=== PATIENT | female | born 1940 | race Caucasian/White ===

== ENCOUNTER 2016-12-19 09:47 | Inpatient (IN) | payer OTHER ==
--- NOTE | 2016-12-19 09:59 | PDOC ---
History of Present Illness - General History Source: Patient Exam Limitations: No Limitations - History of Present Illness Initial Comments: 12/19/16 11:01 The patient is a 76 year old female with a significant past medical history of emphysema who presents to the ED from [facility] with difficulty breathing. Patient notes dyspnea on exertion and difficulty ambulating. She states that she has been in bed all week because she cannot even walk from bed to bathroom. Patient reports that she had a CXR done last week and was found to have fluid in her lungs and was prompted to present to the ED on 12/16. Patient was placed on lasix due to her bilateral LE edema. She notes that her edema has gotten better after the Lasix. She denies fever, chills, nausea, vomiting, constipation, headache. She reports that the hitcher placed her on Eliquis SH: former smoker quit 30 years ago Caption Writer - Dr. Gonzalez Senior Investigator - Dr. Ramos <Luann Cano - Last Filed: 12/19/16 13:15> <Sami Partida - Last Filed: 12/19/16 13:22> - General Chief Complaint: Shortness of Breath Stated Complaint: DIFFICULTY BREATHING Time Seen by Provider: 12/19/16 09:59 Past History <Luann Cano - Last Filed: 12/19/16 13:15> <Sami Partida - Last Filed: 12/19/16 13:22> - Past Medical History Allergies/Adverse Reactions: Allergies Allergy/AdvReac Type Severity Reaction Status Date / Time No Known Allergies Allergy Verified 12/19/16 10:04 Home Medications: Ambulatory Orders Acetaminophen [Tylenol -] 1,000 mg PO Q8H 12/19/16 Albuterol Sulfate [Proair Respiclick] 90 mcg IH QID 12/19/16 Alprazolam [Alprazolam ER] 0.25 mg PO TID 12/19/16 Apixaban [Eliquis] 5 mg PO BID 12/19/16 Calcium Carbonate [Tums Ultra] 500 mg PO TID 12/19/16 Diltiazem [Cardizem -] 60 mg PO BID 12/19/16 Docusate Sodium [Colace -] 100 mg PO HS 12/19/16 Furosemide [Lasix] 20 mg PO DAILY 12/19/16 Guaifenesin [Mucinex] 600 mg PO BID 12/19/16 Magnesium Hydrox 2400MG/30Ml [Milk of Magnesia -] 30 ml PO DAILY 12/19/16 Metolazone [Zaroxolyn -] 2.5 mg PO DAILY 12/19/16 Prednisone 10 mg PO DAILY 12/19/16 Ranitidine HCl 75 mg PO DAILY 12/19/16 Salmeterol/Fluticasone [Advair 500Mcg/50Mcg -] 1 inh IH BID 12/19/16 Tiotropium [place] [Spiriva] 18 mcg IH DAILY 12/19/16 Review of Systems - Review of Systems Able to Perform ROS?: Yes Comments:: 12/19/16 11:01 GENERAL/CONSTITUTIONAL: No fever or chills. No weakness. HEAD, EYES, EARS, NOSE AND THROAT: No change in vision. No ear pain or discharge. No sore throat. CARDIOVASCULAR: No chest pain. RESPIRATORY: +difficulty breathing. No cough, wheezing, or hemoptysis. GASTROINTESTINAL: No nausea, vomiting, diarrhea or constipation. GENITOURINARY: No dysuria, frequency, or change in urination. MUSCULOSKELETAL: No joint or muscle swelling or pain. No neck or back pain. SKIN: No rash NEUROLOGIC: No headache, vertigo, loss of consciousness, or change in strength/ sensation. ENDOCRINE: No increased thirst. No abnormal weight change. HEMATOLOGIC/LYMPHATIC: No anemia, easy bleeding, or history of blood clots. ALLERGIC/IMMUNOLOGIC: No hives or skin allergy. <Luann Cano - Last Filed: 12/19/16 13:15> *Physical Exam - Vital Signs Last Vital Signs Temp Pulse Resp BP Pulse Ox 97.8 F 83 24 111/56 100 12/19/16 10:00 12/19/16 10:35 12/19/16 10:35 12/19/16 10:35 12/19/16 10:35 - Physical Exam Comments: 12/19/16 11:03 GENERAL: Awake, alert, and fully oriented, in no acute distress HEAD: No signs of trauma EYES: PERRLA, EOMI, sclera anicteric, conjunctiva clear ENT: Auricles normal inspection, hearing grossly normal, nares patent, oropharynx clear without exudates. Moist mucosa NECK: Normal ROM, supple, no lymphadenopathy, JVD, or masses LUNGS: +Rales bilaterally. Breath sounds equal, clear to auscultation bilaterally. No wheezes, and no crackles HEART: Regular rate and rhythm, normal S1 and S2, no murmurs, rubs or gallops ABDOMEN: Soft, nontender, normoactive bowel sounds. No guarding, no rebound. No masses EXTREMITIES: Normal range of motion, no edema. No clubbing or cyanosis. No cords, erythema, or tenderness NEUROLOGICAL: Cranial nerves II through XII grossly intact. Normal speech. SKIN: Warm, Dry, normal turgor, no rashes or lesions noted. <Luann Cano - Last Filed: 12/19/16 13:15> ED Treatment Course - LABORATORY CBC & Chemistry Diagram: 12/19/16 10:24 12/19/16 10:24 - ADDITIONAL ORDERS Additional order review: Laboratory Results 12/19/16 10:24 Sodium 130 L Chloride 73 L BUN 14 Creatinine 0.6 Creat Clearance w eGFR > 60 Random Glucose 122 H Calcium 8.7 Total Bilirubin 0.3 AST 21 ALT 21 Alkaline Phosphatase 103 Creatine Kinase 54 Troponin I 0.02 B-Natriuretic Peptide 189.67 Total Protein 6.4 Albumin 3.1 L 12/19/16 10:24 RBC 4.99 MCV 82.5 MCHC 31.9 L RDW 12.7 MPV 7.9 Neutrophils % 68.1 Lymphocytes % 17.2 Monocytes % 14.2 H Eosinophils % 0.3 Basophils % 0.2 - Medications Given in the ED: ED Medications Discontinued Medications Generic Name Dose Route Start Last Admin Trade Name Freq PRN Reason Stop Dose Admin Furosemide 40 mg 12/19/16 10:22 12/19/16 10:40 Lasix Injection - IVPUSH 12/19/16 10:23 40 mg ONCE ONE Administration <Luann Cano - Last Filed: 12/19/16 13:15> - LABORATORY CBC & Chemistry Diagram: 12/19/16 10:24 12/19/16 10:24 <Sami Partida - Last Filed: 12/19/16 13:22> Medical Decision Making - Medical Decision Making 12/19/16 11:03 76 year old female with a significant past medical history of emphysema who presents to the ED from [facility] with difficulty breathing. Will order UA, EKG , and blood work. Will reassess when results are back. 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 Gonzalez, who states that the patient has CHF and needs to be admitted. 12/19/16 11:53 A call was placed to Dr. Huerta. Awaiting a call back. 12/19/16 12:[address] Huerta. She stated that she will not accept the patient and requested the hospitalist to take the admission. <Luann Cano - Last Filed: 12/19/16 13:15> *DC/Admit/Observation/Transfer - Attestations Scribe Attestion: 12/19/16 11:05 Documentation prepared by ZAYDA Brownlee, acting as medical insurance claims specialist for Sami Partida MD/. <Luann Cano - Last Filed: 12/19/16 13:15> - Discharge Dispostion Admit: Yes - Attestations Physician Attestion: 12/19/16 09:59 I, Dr. Sami Partida, attest that this document has been prepared under my direction and personally reviewed by me in its entirety. I further attest, that it accurately reflects all work, treatment, procedures and medical decision -making performed by me. <Sami Partida - Last Filed: 12/19/16 13:22> Diagnosis at time of Disposition: Congestive heart failure Qualifiers: Congestive heart failure type: combined Congestive heart failure chronicity: acute Qualified Code(s): I50.41 - Acute combined systolic (congestive) and diastolic (congestive) heart failure Dyspnea Qualifiers: Dyspnea type: dyspnea on exertion Qualified Code(s): R06.09 - Other forms of dyspnea - Discharge Dispostion Condition at time of disposition: Improved - Referrals Referrals: STAFF,NOT ON [Primary Care Provider] -
[2016-12-19] MEDS ORDERED: FUROSEMIDE 40 MG/4 ML INJECTABLE VIAL IVPUSH ONE (10:22)
[2016-12-19] MEDS ORDERED: FUROSEMIDE 40 MG/4 ML INJECTABLE VIAL ONE (10:25)
[2016-12-19 10:30] LABS: BASOPHIL 0.2 % (0-2.0); EOSINOPHIL 0.3 % (0-4.5); MCH 26.3 pg (25.7-33.7); MCHC 31.9 g/dl (32.0-36.0); MEAN CELL VOLUME 82.5 fl (80-96); MEAN PLT VOLUME 7.9 fl (7.5-11.1); NEUTROPHILS 68.1 % (42.8-82.8); PLATELET COUNT 218 K/MM3 (134-434); RDW 12.7 % (11.6-15.6); WHITE BLOOD COUNT 10.7 K/mm3 (4.0-10.0)
[2016-12-19 10:49] LABS: ALBUMIN 3.1 g/dl (3.4-5.0); BILIRUBIN,TOTAL 0.3 mg/dL (0.2-1.0); CALCIUM 8.7 mg/dL (8.5-10.1); CREATININE 0.6 mg/dL (0.55-1.02); GLUCOSE,RANDOM 122 mg/dL (74-106); SGOT/AST 21 U/L (15-37); SGPT/ALT 21 U/L (12-78); TOT PROT 6.4 g/dl (6.4-8.2)
[2016-12-19 10:50] LABS: INR 1.55 (0.82-1.09); PROTHROMBIN TIME (PATIENT) 17.2 SEC (9.98-11.88)
[2016-12-19 10:53] LABS: ALK PHOS 103 U/L (45-117); TROPONIN I 0.02 ng/ml (0.00-0.05)
[2016-12-19] MEDS ORDERED: POTASSIUM CHLORIDE TABS 20 MEQ TABLET.ER (FP) PO ONE ×2 (11:07→11:12)
[2016-12-19 11:09] LABS: ANION GAP 6 (8-16); CO2 51 mmol/L (21-32)
[2016-12-19 11:11] LABS: URINE APPEARANCE CLEAR; URINE BILIRUBIN NEGATIVE (NEGATIVE); URINE BLOOD NEGATIVE (NEGATIVE); URINE COLOR LTYELLOW; URINE GLUCOSE (UA) NEGATIVE (NEGATIVE); URINE KETONE NEGATIVE (NEGATIVE); URINE LEUK ESTERASE NEGATIVE (NEGATIVE); URINE NITRITE NEGATIVE (NEGATIVE); URINE PROTEIN NEGATIVE (NEGATIVE); URINE UROBILINOGEN NEGATIVE E.U./dl (0.2-1.0)
--- NOTE | 2016-12-19 11:47 | CON.CARD ---
Consult Consult Specialty:: Cardiology Referred by:: ER (Patient from [facility]) Reason for Consultation:: Cardiac evaluation - History of Present Illness Chief Complaint: Shortness of breath History of Present Illness: Patient is a 76 year old female with underlying history of COPD on O2 and paroxysmal atrial fibrillation ([id number] score of 3) now on Eliquis presents with increased shortness of breath. She denies chest pain or palpitations. ECG demonstrates sinus rhythm. Denies paroxysmal nocturnal dyspnea or orthopnea. Denies fever or chills. Denies headache or lightheadedness. Patient was given IV diuretics and ann catheter was inserted. Cardiology consultation was called for further evaluation. Transthoracic echocardiography from office recently revealed normal left ventricular systolic function and mild tricuspid valve regurgitation. - History Source History Provided By: Patient, Family Member, Medical Record Limitations to Obtaining History: No Limitations - Past Medical History Cardio/Vascular: Yes: AFIB Pulmonary: Yes: COPD - Past Surgical History Past Surgical History: Yes: Appendectomy, Cholecystectomy - Alcohol/Substance Use Hx Alcohol Use: Yes (social) - Smoking History Smoking history: Former smoker Have you smoked in the past 12 months: No If you are a former smoker, when did you quit?: 1977 Home Medications - Allergies Allergies/Adverse Reactions: Allergies Allergy/AdvReac Type Severity Reaction Status Date / Time No Known Allergies Allergy Verified 12/19/16 10:04 - Home Medications Home Medications: Ambulatory Orders Acetaminophen [Tylenol -] 1,000 mg PO Q8H PRN 12/19/16 Albuterol Sulfate [Proair Respiclick] 90 mcg IH QID 12/19/16 Alprazolam [Alprazolam ER] 0.25 mg PO TID 12/19/16 Apixaban [Eliquis] 5 mg PO BID 12/19/16 Calcium Carbonate [Tums Ultra] 500 mg PO TID 12/19/16 Diltiazem [Cardizem -] 60 mg PO BID 12/19/16 Docusate Sodium [Colace -] 100 mg PO HS 12/19/16 Furosemide [Lasix] 20 mg PO DAILY 12/19/16 Guaifenesin [Mucinex] 600 mg PO BID 12/19/16 Magnesium Hydrox 2400MG/30Ml [Milk of Magnesia -] 30 ml PO DAILY 12/19/16 Metolazone [Zaroxolyn -] 2.5 mg PO DAILY 12/19/16 Prednisone 10 mg PO DAILY 12/19/16 Ranitidine HCl 75 mg PO DAILY 12/19/16 Salmeterol/Fluticasone [Advair 500Mcg/50Mcg -] 1 inh IH BID 12/19/16 Tiotropium [place] [Spiriva] 18 mcg IH DAILY 12/19/16 Family Disease History - Family Disease History Family Disease History: CA: Mother (Breast), Daughter (Breast) Review of Systems - Review of Systems Constitutional: denies: Chills, Fever Cardiovascular: reports: Shortness of Breath. denies: Chest Pain, Palpitations Respiratory: reports: SOB. denies: Cough, Hemoptysis, Orthopnea, PND Gastrointestinal: denies: Abdominal Pain, Constipation, Diarrhea, Melena, Nausea , Rectal Bleeding, Vomiting Neurological: denies: Dizziness, Headache, Numbness, Seizure, Syncope Vital Signs: Vital Signs Temperature 97.8 F 12/19/16 10:00 Pulse Rate 85 12/19/16 11:24 Respiratory Rate 22 12/19/16 11:24 Blood Pressure 113/77 12/19/16 11:24 O2 Sat by Pulse Oximetry (%) 99 12/19/16 11:24 Neck: Yes: Supple Respiratory: Yes: Diminished Gastrointestinal: Yes: Normal Bowel Sounds, Soft. No: Tenderness Cardiovascular: Yes: Regular Rate and Rhythm JVD: No Carotid Bruit: No PMI: Non-Displaced Heart Sounds: Yes: S1, S2 Edema: Yes Edema: LLE: Trace, RLE: Trace - Other Data Labs, Other Data: CBC, BMP 12/19/16 10:24 12/19/16 10:24 INR, PTT INR 1.55 (0.82-1.09) H 12/19/16 10:24 Troponin, BNP 12/19/16 10:24 Troponin I 0.02 B-Natriuretic Peptide 189.67 Laboratory Results - last 24 hr 12/19/16 12/19/16 12/19/16 10:24 10:24 10:24 WBC 10.7 H RBC 4.99 Hgb 13.1 Hct 41.2 MCV 82.5 MCHC 31.9 L RDW 12.7 Plt Count 218 MPV 7.9 Neutrophils % 68.1 Lymphocytes % 17.2 Monocytes % 14.2 H Eosinophils % 0.3 Basophils % 0.2 INR 1.55 H Sodium 130 L Potassium 2.5 L* Chloride 73 L Carbon Dioxide 51 H Anion Gap 6 L BUN 14 Creatinine 0.6 Creat Clearance w eGFR > 60 Random Glucose 122 H Calcium 8.7 Total Bilirubin 0.3 AST 21 ALT 21 Alkaline Phosphatase 103 Creatine Kinase 54 Troponin I 0.02 B-Natriuretic Peptide 189.67 Total Protein 6.4 Albumin 3.1 L Urine Color Urine Appearance Urine pH Ur Specific [place] Urine Protein Urine Glucose (UA) Urine Ketones Urine Blood Urine Nitrite Urine Bilirubin Urine Urobilinogen Ur Leukocyte Esterase 12/19/16 12/19/16 12/19/16 10:46 18:18 18:18 WBC RBC Hgb Hct MCV MCHC RDW Plt Count MPV Neutrophils % Lymphocytes % Monocytes % Eosinophils % Basophils % INR Sodium 126 L Potassium 3.3 L D Chloride 69 L Carbon Dioxide > 45 H Anion Gap 12 BUN 15 Creatinine 0.5 L Creat Clearance w eGFR Random Glucose 188 H D Calcium 8.6 Total Bilirubin AST ALT Alkaline Phosphatase Creatine Kinase Troponin I < 0.02 B-Natriuretic Peptide Total Protein Albumin Urine Color Ltyellow Urine Appearance Clear Urine pH 7.0 Ur Specific [place] 1.011 Urine Protein Negative Urine Glucose (UA) Negative Urine Ketones Negative Urine Blood Negative Urine Nitrite Negative Urine Bilirubin Negative Urine Urobilinogen Negative Ur Leukocyte Esterase Negative Sinus rhythm PVC, APC Echo: Report Reviewed Imaging - Results Chest X-ray: Report Reviewed (Granulomatous changes, atelectasis) EKG: Report Reviewed Problem List - Problems (1) Dyspnea Code(s): R06.00 - DYSPNEA, UNSPECIFIED Qualifiers: Dyspnea type: dyspnea on exertion Qualified Code(s): R06.09 - Other forms of dyspnea (2) COPD (chronic obstructive pulmonary disease) Code(s): J44.9 - CHRONIC OBSTRUCTIVE PULMONARY DISEASE, UNSPECIFIED Qualifiers : COPD type: unspecified COPD Qualified Code(s): J44.9 - Chronic obstructive pulmonary disease, unspecified (3) Acute on chronic diastolic congestive heart failure Code(s): I50.33 - ACUTE ON CHRONIC DIASTOLIC (CONGESTIVE) HEART FAILURE (4) Atrial fibrillation Code(s): I48.91 - UNSPECIFIED ATRIAL FIBRILLATION Qualifiers: Atrial fibrillation type: paroxysmal Qualified Code(s): I48.0 - Paroxysmal atrial fibrillation Assessment/Plan 1. Clinical presentation suggests acute on chronic LV diastolic failure 2. Paroxysmal atrial fibrillation now in sinus rhythm 3. COPD PLAN: 1. IV diuretics and monitor renal function and electrolytes. Patient was also started on Zaroxolyn, but use with caution. K supplement. Monitor I/Os 2. Continue Cardizem PO 3. Continue Eliquis 4. Bronchodilator, steroids and O2. Further plans are to follow Juan R Gonzalez MD
--- NOTE | 2016-12-19 15:38 | HP ---
CHIEF COMPLAINT: dyspnea PCP: From [facility] Herbarium Worker: Dr. Gonzalez Test Boring Crew Chief: Dr. Ramos HISTORY OF PRESENT ILLNESS: 76 yr old woman with hx of HTN, diastolic CHF, emphysema (oxygen dependent 3lpm) , BIBEMS from [facility] for worsening shortness of breath and weakness. For past two weeks she has noticed worsening exertional dyspnea. She was on 2lpm but required to go to 3lpm for the past few days due to sob, also for past few days she has not been able to get out of bed even for the bathroom due to difficulty breathing which started to occur at rest. She also c/o b/l edema in her feet and ankles which has improved since starting lasix. She saw Dr. Gonzalez recently and was diagnosed with CHF and started on lasix daily. She took a chest xray as outpatient was told she had pleural effusion last week. Resident of [facility] past 15 months. ER course was notable for: (1) Lasix IVPB 40mg (2) potassium chl 40meq Recent Travel: PAST MEDICAL HISTORY: Emphysema CHF, afib anxiety HTN GERD Social History: Smoking: quit 1977 Alcohol: denies Drugs: denies Family History: [place] Allergies No Known Allergies Allergy (Verified 12/19/16 10:04) HOME MEDICATIONS: Home Medications Medication Instructions Recorded Acetaminophen [Tylenol -] 1,000 mg PO Q8H 12/19/16 Albuterol Sulfate [Proair 90 mcg IH QID 12/19/16 Respiclick] Alprazolam [Alprazolam ER] 0.25 mg PO TID 12/19/16 Apixaban [Eliquis] 5 mg PO BID 12/19/16 Calcium Carbonate [Tums Ultra] 500 mg PO TID 12/19/16 Diltiazem [Cardizem -] 60 mg PO BID 12/19/16 Docusate Sodium [Colace -] 100 mg PO HS 12/19/16 Furosemide [Lasix] 20 mg PO DAILY 12/19/16 Guaifenesin [Mucinex] 600 mg PO BID 12/19/16 Magnesium Hydrox 2400MG/30Ml [Milk 30 ml PO DAILY 12/19/16 of Magnesia -] Metolazone [Zaroxolyn -] 2.5 mg PO DAILY 12/19/16 Prednisone 10 mg PO DAILY 02/19/17 Ranitidine HCl 75 mg PO DAILY 12/19/16 Salmeterol/Fluticasone [Advair 1 inh IH BID 12/19/16 500Mcg/50Mcg -] Tiotropium [place] [Spiriva] 18 mcg IH DAILY 12/19/16 REVIEW OF SYSTEMS CONSTITUTIONAL: Present: generalized weakness,weight change(has been loosing weight for past year) Absent: fever, chills, diaphoresis, malaise, loss of appetite, HEENT: Absent: rhinorrhea, nasal congestion, throat pain, throat swelling, difficulty swallowing, mouth swelling, ear pain, eye pain, visual changes CARDIOVASCULAR: Present: irregular heart rate, peripheral edema Absent: chest pain, syncope, palpitations,lightheadedness, RESPIRATORY: Present: shortness of breath, dyspnea with exertion, Absent: cough, orthopnea, wheezing, stridor, hemoptysis GASTROINTESTINAL: Absent: abdominal pain, abdominal distension, nausea, vomiting, diarrhea, constipation, melena, hematochezia GENITOURINARY: Absent: dysuria, frequency, urgency, hesitancy, hematuria, flank pain, genital pain MUSCULOSKELETAL: Absent: myalgia, arthralgia, joint swelling, back pain, neck pain SKIN: Absent: rash, itching, pallor HEMATOLOGIC/IMMUNOLOGIC: Absent: easy bleeding, easy bruising, lymphadenopathy, frequent infections ENDOCRINE: Absent: unexplained weight gain, unexplained weight loss, heat intolerance, cold intolerance NEUROLOGIC: Absent: headache, focal weakness or paresthesias, dizziness, unsteady gait, seizure, mental status changes, bladder or bowel incontinence PSYCHIATRIC: Present: anxiety, Absent:depression, suicidal or homicidal ideation, hallucinations. PHYSICAL EXAMINATION GENERAL: thin, elderly, Awake, alert, and fully oriented, in no acute distress. HEAD: Normal with no signs of trauma. EYES: Pupils equal, round and reactive to light, extraocular movements intact, sclera anicteric, conjunctiva clear. No lid lag. EARS, NOSE, THROAT: Ears normal, nares patent, oropharynx clear with thrush on upper palate. Moist mucous membranes. NECK: Normal range of motion, supple without lymphadenopathy, or masses. +JVD LUNGS: Breath sounds equal, clear to auscultation bilaterally. scattered wheezing R>L No accessory muscle use. HEART: irregular rate and rhythm, normal S1 and S2 without murmur, rub or gallop. ABDOMEN: Soft, nontender, not distended, normoactive bowel sounds, no guarding, no rebound, no masses. MUSCULOSKELETAL: within normal range of motion at all joints. No bony deformities or tenderness. No CVA tenderness. UPPER EXTREMITIES: 2+ pulses, warm, well-perfused. No cyanosis. No clubbing. Cap refill <2 seconds. No peripheral edema. 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 LOWER EXTREMITIES: 2+ pulses, warm, well-perfused. No calf tenderness. 1+ pitting edema b/l ankles. NEUROLOGICAL: Normal speech. PSYCHIATRIC: Cooperative. Good eye contact. Appropriate mood and affect. SKIN: Warm, dry, normal turgor, stage II decub ulcer Ann in place - clear yellow urine. Active Medications Acetaminophen (Tylenol -) 650 mg PO Q6H PRN Aclidinium [place] (Tudorza -) 1 puff IH BID [facility]IS Albuterol Sulfate (Ventolin Hfa Inhaler -) 2 puff IH Q4H PRN Albuterol/Ipratropium (Duoneb -) 1 amp NEB Q6H PRN PRN Reason: SHORTNESS OF BREATH Alprazolam (Xanax -) 0.25 mg PO TID PRN PRN Reason: ANXIETY Apixaban (Eliquis -) 5 mg PO BID [facility] Budesonide/Formoterol Fumarate (Symbicort 160/4.5mcg -) 2 puff IH BID [facility] Diltiazem HCl (Cardizem -) 60 mg PO BID [facility] Docusate Sodium (Colace -) 100 mg PO HS [facility] Furosemide (Lasix Injection -) 20 mg IVPB BID@0600,1400 [facility] Guaifenesin (Mucinex -) 600 mg PO BID [facility] Potassium Chloride (Potassium Chloride 10 Meq Premix Ivpb -) 100 mls @ 100 mls/ hr IVPB Q60M [facility] Stop: 12/19/16 21:29 Last Admin: 12/19/16 19:30 Dose: 100 mls/hr Magnesium Hydroxide (Milk Of Magnesia -) 30 ml PO DAILY [facility] Methylprednisolone Sodium Succinate (Solu-Medrol -) 40 mg IVPB Q8H-IV [facility] Metolazone (Zaroxolyn -) 2.5 mg PO DAILY@0530 [facility] Potassium Chloride (K-Dur -) 20 meq PO BID [facility] Stop: 12/23/16 09:59 Ranitidine HCl (Zantac -) 75 mg PO DAILY [facility] ASSESSMENT/PLAN: 76 yr old woman with emphysema (oxygen dependent), diastolic CHF, HTN presents with worsening dyspnea found to be hypokalemic admitted for acute diastolic CHF. #SOb secondary to acute CHF exacerbation - lasix 20mg IVPB BID - I&O, daily weights - ann in place - monitor electrolytes #Hypokalemia, likely from diuretic use - replete po 40meq in Ed, Ivpb [id number] #Arrhythmia - cardizem 60mg po BID - eliquis 5mg po bid #Thrush, likely from inhalers - nystatin swich&swallow q6hr #Emphysema - oxygen dependent - continous oxygen 3lpm, maintain oxygen sat >90% - solu-medrol 40mg IVPb q8hr --start 12/20 - symbicort, mucinex,duonebs,ventolin, tudorza #HTN - metalazone #GERD - ranitidine, milk of magnesia #Anxiety - xanax 0.25 TID #DVT - on eliquis #Diet: low sodium Code: DNR/DNI Visit type - Emergency Visit Emergency Visit: Yes ED Registration Date: 12/19/16 Care time: The patient presented to the Emergency Department on the above date and was hospitalized for further evaluation of their emergent condition. - New Patient This patient is new to me today: Yes Date on this admission: 12/19/16 - Critical Care Critical Care patient: No
[2016-12-19] MEDS ORDERED: ACETAMINOPHEN 325 MG TABLET (FP) PO PRN (16:45)
[2016-12-19] MEDS ORDERED: ALBUTEROL SO4 6.7 GM HFA INHALER IH PRN (18:00)
[2016-12-19 18:03] VITALS: BMI 15.7
--- NOTE | 2016-12-19 18:25 | PN ---
Teaching Attending Note Name of Resident: Cindy Jeter ATTENDING PHYSICIAN STATEMENT I saw and evaluated the patient. I reviewed the resident's note and discussed the case with the resident. I agree with the resident's findings and plan as documented. SUBJECTIVE: Patient is c/o being shortness of breath, no nausea or vomiting, no fever or chills. No headache.No fever or chills. OBJECTIVE: Vital Signs Temperature 97.8 F 12/19/16 10:00 Pulse Rate 62 12/19/16 17:23 Respiratory Rate 22 12/19/16 17:23 Blood Pressure 119/52 12/19/16 17:23 O2 Sat by Pulse Oximetry (%) 97 12/19/16 17:23 GENERAL: Awake, alert, and fully oriented, in no acute distress. HEAD: Normal with no signs of trauma. EYES: Pupils equal, round and reactive to light, extraocular movements intact, sclera anicteric, conjunctiva clear. EARS, NOSE, THROAT: Ears normal, oropharynx clear without exudates. Moist mucous membranes. NECK: Normal range of motion, supple without lymphadenopathy, JVD, or masses. LUNGS: decreased Breath sounds BL , Decreased air entry BL, no crackles. No accessory muscle use. HEART: Regular rate and rhythm, S1 and S2 positive, AMRIK 2/6 , no rub or gallop. ABDOMEN: Soft, nontender, not distended, normoactive bowel sounds, no guarding, no rebound, no masses. MUSCULOSKELETAL: Normal range of motion at all joints. No bony deformities or tenderness. No CVA tenderness. EXTREMITIES: 2+ pulses, warm, well-perfused. No calf tenderness. No peripheral edema. NEUROLOGICAL: Cranial nerves II-XII intact. Normal speech. Normal gait. PSYCHIATRIC: Cooperative. Good eye contact. Appropriate mood and affect. SKIN: Warm, dry, normal turgor, no rashes or lesions noted. CBCD WBC 10.7 K/mm3 (4.0-10.0) H 12/19/16 10:24 RBC 4.99 M/mm3 (3.60-5.2) 12/19/16 10:24 Hgb 13.1 GM/dL (10.7-15.3) 12/19/16 10:24 Hct 41.2 % (32.4-45.2) 12/19/16 10:24 MCV 82.5 fl (80-96) 12/19/16 10:24 MCHC 31.9 g/dl (32.0-36.0) L 12/19/16 10:24 RDW 12.7 % (11.6-15.6) 12/19/16 10:24 Plt Count 218 K/MM3 (134-434) 12/19/16 10:24 MPV 7.9 fl (7.5-11.1) 12/19/16 10:24 CMP Sodium 130 mmol/L (136-145) L 12/19/16 10:24 Potassium 2.5 mmol/L (3.5-5.1) L* 12/19/16 10:24 Chloride 73 mmol/L (98-107) L 12/19/16 10:24 Carbon Dioxide 51 mmol/L (21-32) H 12/19/16 10:24 Anion Gap 6 (8-16) L 12/19/16 10:24 BUN 14 mg/dL (7-18) 12/19/16 10:24 Creatinine 0.6 mg/dL (0.55-1.02) 12/19/16 10:24 Creat Clearance w eGFR > 60 (>60) 12/19/16 10:24 Random Glucose 122 mg/dL (74-106) H 12/19/16 10:24 Calcium 8.7 mg/dL (8.5-10.1) 12/19/16 10:24 Total Bilirubin 0.3 mg/dL (0.2-1.0) 12/19/16 10:24 AST 21 U/L (15-37) 12/19/16 10:24 ALT 21 U/L (12-78) 12/19/16 10:24 Alkaline Phosphatase 103 U/L (45-117) 12/19/16 10:24 Total Protein 6.4 g/dl (6.4-8.2) 12/19/16 10:24 Albumin 3.1 g/dl (3.4-5.0) L 12/19/16 10:24 CARDIAC ENZYMES Creatine Kinase 54 IU/L (26-192) 12/19/16 10:24 Troponin I 0.02 ng/ml (0.00-0.05) 12/19/16 10:24 Current Medications Generic Name Dose Route Start Last Admin Trade Name Freq PRN Reason Stop Dose Admin Acetaminophen 650 mg 12/19/16 16:45 Tylenol - PO Q6H PRN Aclidinium [place] 1 puff 12/19/16 22:00 Tudorza - IH BID CHRIS Albuterol Sulfate 2 puff 12/19/16 18:00 Ventolin Hfa Inhaler - IH Q4H PRN Alprazolam 0.25 mg 12/19/16 22:00 Xanax - PO TID CHRIS Apixaban 5 mg 12/19/16 22:00 Eliquis - PO BID CHRIS Budesonide/Formoterol Fumarate 2 puff 12/19/16 22:00 Symbicort 160/4.5mcg - IH BID [facility] Calcium Carbonate 650 mg 12/19/16 22:00 Calcium Carbonate - PO Q8H PRN Diltiazem HCl 60 mg 12/19/16 22:00 Cardizem - PO BID [facility] Docusate Sodium 100 mg 12/19/16 22:00 Colace - PO HS [facility] Furosemide 20 mg 12/20/16 06:00 Lasix Injection - IVPB BID@0600,1400 [facility] Guaifenesin 600 mg 12/19/16 22:00 Mucinex - PO BID [facility] Magnesium Hydroxide 30 ml 12/20/16 10:00 Milk Of Magnesia - PO DAILY [facility] Metolazone 2.5 mg 12/20/16 05:30 Zaroxolyn - PO DAILY@0530 [facility] Prednisone 10 mg 12/20/16 10:00 Deltasone - PO DAILY [facility] Ranitidine HCl 75 mg 12/20/16 10:00 Zantac - PO DAILY [facility] Home Medications Medication Instructions Recorded Acetaminophen [Tylenol -] 1,000 mg PO Q8H PRN 12/19/16 Albuterol Sulfate [Proair 90 mcg IH QID 12/19/16 Respiclick] Alprazolam [Alprazolam ER] 0.25 mg PO TID 12/19/16 Apixaban [Eliquis] 5 mg PO BID 12/19/16 Calcium Carbonate [Tums Ultra] 500 mg PO TID 12/19/16 Diltiazem [Cardizem -] 60 mg PO BID 12/19/16 Docusate Sodium [Colace -] 100 mg PO HS 12/19/16 Furosemide [Lasix] 20 mg PO DAILY 12/19/16 Guaifenesin [Mucinex] 600 mg PO BID 12/19/16 Magnesium Hydrox 2400MG/30Ml [Milk 30 ml PO DAILY 12/19/16 of Magnesia -] Metolazone [Zaroxolyn -] 2.5 mg PO DAILY 12/19/16 Prednisone 10 mg PO DAILY 12/19/16 Ranitidine HCl 75 mg PO DAILY 12/19/16 Salmeterol/Fluticasone [Advair 1 inh IH BID 12/19/16 500Mcg/50Mcg -] Tiotropium [place] [Spiriva] 18 mcg IH DAILY 12/19/16 ASSESSMENT AND PLAN: Patient is a 76 yr old woman with emphysema (oxygen dependent), diastolic CHF, HTN presents with worsening dyspnea found to be hypokalemic admitted for acute diastolic CHF. # Acute exacerbation of diastolic CHF r/o ACS troponin q6h x2 sets, EKG in am, cardiology consult appreciated, Lasix 20mg IV BID with added potassium po bid # Acute COPD exacerbation with elevated Hco3 on chemistry of 50's, added home meds, also duo nebs, ABG stat to be followed , for consult in am , continue home meds #Acute Hyponatremia will monitor # Acute Hypokalemia with potassium of 2.5 , potassium rider x 3 , given po potassium, as well, added bid potassium with lasix # Hx of Afib rate is controlled on Eliquis and cardizem to continue DVT PX: Eliquis
[2016-12-19 18:51] LABS: CALCIUM 8.6 mg/dL (8.5-10.1); CREATININE 0.5 mg/dL (0.55-1.02); GLUCOSE,RANDOM 188 mg/dL (74-106)
[2016-12-19 18:56] LABS: ANION GAP 12 (8-16); CO2 > 45 mmol/L (21-32)
[2016-12-19] MEDS ORDERED: KCL 10 MEQ IVPB 100 ML IVPB ONE ×2 (19:16→20:26)
[2016-12-19] MEDS: KCL 10 MEQ IVPB 100 ML IVPB SCH ×3 (19:30→23:34)
[2016-12-19] MEDS ORDERED: ALBUTEROL SO4 2.5/IPRATROPIUM 0.5 INH SOL 3 ML VIAL.NEB. NEB PRN (19:57)
[2016-12-19] MEDS ORDERED: methylPREDNISolone NA SUCC 40 MG/1 ML VIAL ONE (20:39)
[2016-12-19] MEDS: methylPREDNISolone NA SUCC 40 MG/1 ML VIAL IVPB SCH (20:42)
[2016-12-19] MEDS ORDERED: ALPRAZolam 0.25 MG TABLET PO SCH (22:00)
[2016-12-19] MEDS ORDERED: CALCIUM CARBONATE 650 MG TABLET PO PRN (22:00)
[2016-12-19] MEDS: DOCUSATE SODIUM 100 MG CAPSULE (FP) PO SCH (23:34)
[2016-12-19] MEDS: APIXABAN 5 MG TABLET PO SCH (23:34)
[2016-12-19] MEDS: dilTIAZem HCL 60 MG TABLET (FP) PO SCH (23:34)
[2016-12-19] MEDS: BUDESONIDE/FORMETEROL FUMARATE 160/4.5 mcg INHALER IH SCH (23:35)
[2016-12-19] MEDS: guaiFENesin 600 MG TABLET.ER (FP) PO SCH (23:35)
[2016-12-19] MEDS: ACLIDINIUM BROMIDE 400 MCG/INH AERO.POWD IH SCH (23:35)
[2016-12-19] MEDS: ALPRAZolam 0.25 MG TABLET PO PRN (23:36)
--- NOTE | 2016-12-20 00:15 | EKG ---
Test Reason : Blood Pressure : / mmHG Vent. Rate : 083 BPM Atrial Rate : 082 BPM P-R Int : 134 ms QRS Dur : 094 ms QT Int : 518 ms P-R-T Axes : 085 084 088 degrees QTc Int : 608 ms SINUS RHYTHM WITH OCCASIONAL PREMATURE VENTRICULAR COMPLEXES AND PREMATURE ATRIAL COMPLEXES NONSPECIFIC ST AND T WAVE ABNORMALITY ABNORMAL ECG NO PREVIOUS ECGS AVAILABLE Confirmed by LAWRENCE PAVON MD ([id number]) on 12/20/2016 12:15:02 AM Referred By: Confirmed By:LAWRENCE PAVON MD
[2016-12-20] MEDS ORDERED: PT OWN MED DRAWER 7, Y5N ONE ×4 (00:23→20:52)
[2016-12-20] MEDS: methylPREDNISolone NA SUCC 40 MG/1 ML VIAL IVPB SCH ×3 (01:39→18:32)
[2016-12-20] MEDS: METOLAZONE 2.5 MG TABLET (FP) PO SCH (05:58)
[2016-12-20] MEDS: NYSTATIN 500,000 UNITS/5 ML SUSPENSION PO SCH ×3 (06:35→18:32)
[2016-12-20] MEDS: FUROSEMIDE 40 MG/4 ML INJECTABLE VIAL IVPB SCH ×2 (06:35→15:27)
[2016-12-20 07:20] LABS: BASOPHIL 0.1 % (0-2.0); MCH 26.5 pg (25.7-33.7); MCHC 32.2 g/dl (32.0-36.0); MEAN CELL VOLUME 82.4 fl (80-96); MEAN PLT VOLUME 8.5 fl (7.5-11.1); NEUTROPHILS 94.8 % (42.8-82.8); PLATELET COUNT 226 K/MM3 (134-434); WHITE BLOOD COUNT 14.4 K/mm3 (4.0-10.0)
[2016-12-20 08:06] LABS: ALBUMIN 2.9 g/dl (3.4-5.0); ANION GAP 11 (8-16); BILIRUBIN,TOTAL 0.5 mg/dL (0.2-1.0); CALCIUM 8.4 mg/dL (8.5-10.1); CO2 42 mmol/L (21-32); CREATININE 0.6 mg/dL (0.55-1.02); GLUCOSE,RANDOM 122 mg/dL (74-106); MAGNESIUM 2.2 mg/dL (1.8-2.4); SGOT/AST 20 U/L (15-37); SGPT/ALT 23 U/L (12-78)
[2016-12-20 08:07] LABS: ALK PHOS 104 U/L (45-117)
[2016-12-20] MEDS: MAGNESIUM HYDROX 2400MG/30ML ORAL SUSPENSION 30 ML CUP PO SCH (09:58)
[2016-12-20] MEDS: dilTIAZem HCL 60 MG TABLET (FP) PO SCH ×2 (09:58→21:54)
[2016-12-20] MEDS: BUDESONIDE/FORMETEROL FUMARATE 160/4.5 mcg INHALER IH SCH ×2 (09:58→21:55)
[2016-12-20] MEDS: APIXABAN 5 MG TABLET PO SCH ×2 (09:58→21:54)
[2016-12-20] MEDS: ACLIDINIUM BROMIDE 400 MCG/INH AERO.POWD IH SCH ×2 (09:59→21:55)
[2016-12-20] MEDS ORDERED: predniSONE 10 MG TABLET (UD) PO SCH (10:00)
[2016-12-20] MEDS: ALPRAZolam 0.25 MG TABLET PO PRN ×2 (10:09→21:55)
[2016-12-20] MEDS: POTASSIUM CHLORIDE TABS 20 MEQ TABLET.ER (FP) PO SCH ×2 (11:36→21:54)
[2016-12-20] MEDS: RANITIDINE HCL 150 MG TABLET (FP) PO SCH (11:36)
[2016-12-20] MEDS: guaiFENesin 600 MG TABLET.ER (FP) PO SCH ×2 (11:36→21:55)
--- NOTE | 2016-12-20 11:51 | PN ---
Progress Note, Physician Chief Complaint: Less SOB today, but appears anxious History of Present Illness: Patient was seen and examined. Awake and alert. Chart was reviewed Denies chest pain or palpitation. Less SOB - Current Medication List Current Medications: Active Medications Acetaminophen (Tylenol -) 650 mg PO Q6H PRN Aclidinium [place] (Tudorza -) 1 puff IH BID [facility] Last Admin: 12/20/16 09:59 Dose: 1 puff Albuterol Sulfate (Ventolin Hfa Inhaler -) 2 puff IH Q4H PRN Albuterol/Ipratropium (Duoneb -) 1 amp NEB Q6H PRN PRN Reason: SHORTNESS OF BREATH Alprazolam (Xanax -) 0.25 mg PO TID PRN PRN Reason: ANXIETY Last Admin: 12/20/16 10:09 Dose: 0.25 mg Apixaban (Eliquis -) 5 mg PO BID [facility] Last Admin: 12/20/16 09:58 Dose: 5 mg Budesonide/Formoterol Fumarate (Symbicort 160/4.5mcg -) 2 puff IH BID [facility] Last Admin: 12/20/16 09:58 Dose: 2 puff Diltiazem HCl (Cardizem -) 60 mg PO BID [facility] Last Admin: 12/20/16 09:58 Dose: 60 mg Docusate Sodium (Colace -) 100 mg PO HS [facility] Last Admin: 12/19/16 23:34 Dose: 100 mg Furosemide (Lasix Injection -) 20 mg IVPB BID@0600,1400 [facility] Last Admin: 12/20/16 06:35 Dose: 20 mg Guaifenesin (Mucinex -) 600 mg PO BID [facility] Last Admin: 12/20/16 11:36 Dose: Not Given Magnesium Hydroxide (Milk Of Magnesia -) 30 ml PO DAILY [facility] Last Admin: 12/20/16 09:58 Dose: 30 ml Methylprednisolone Sodium Succinate (Solu-Medrol -) 40 mg IVPB Q8H-IV [facility] Last Admin: 12/20/16 09:58 Dose: 40 mg Metolazone (Zaroxolyn -) 2.5 mg PO DAILY@0530 [facility] Last Admin: 12/20/16 05:58 Dose: 2.5 mg Nystatin (Nystatin Oral Suspension -) 500,000 units PO Q6HPO [facility] Last Admin: 02/20/17 11:43 Dose: 500,000 units Potassium Chloride (K-Dur -) 20 meq PO BID [facility] Stop: 12/23/16 09:59 Last Admin: 12/20/16 11:36 Dose: 20 meq Ranitidine HCl (Zantac -) 75 mg PO DAILY [facility] Last Admin: 12/20/16 11:36 Dose: 75 mg - Objective Vital Signs: Vital Signs Temperature 98.7 F 12/20/16 06:04 Pulse Rate 76 12/20/16 06:04 Respiratory Rate 18 12/20/16 06:04 Blood Pressure 118/46 12/20/16 06:04 O2 Sat by Pulse Oximetry (%) 97 12/19/16 21:30 Neck: Yes: Supple Cardiovascular: Yes: Regular Rate and Rhythm, S1, S2 Respiratory: Yes: Diminished Gastrointestinal: Yes: Normal Bowel Sounds, Soft. No: Tenderness Edema: No Additional Findings/Remarks: - Review of Systems Constitutional: denies: Chills, Fever Cardiovascular: reports: Shortness of Breath. denies: Chest Pain, Palpitations Respiratory: reports: SOB. denies: Cough, Hemoptysis, Orthopnea, PND Gastrointestinal: denies: Abdominal Pain, Constipation, Diarrhea, Melena, Nausea , Rectal Bleeding, Vomiting Neurological: denies: Dizziness, Headache, Numbness, Seizure, Syncope Labs: CBC, BMP 12/20/16 06:00 12/20/16 06:00 INR, PTT INR 1.55 (0.82-1.09) H 12/19/16 10:24 Problem List - Problems (1) Dyspnea Code(s): R06.00 - DYSPNEA, UNSPECIFIED Qualifiers: Dyspnea type: dyspnea on exertion Qualified Code(s): R06.09 - Other forms of dyspnea (2) COPD (chronic obstructive pulmonary disease) Code(s): J44.9 - CHRONIC OBSTRUCTIVE PULMONARY DISEASE, UNSPECIFIED Qualifiers : COPD type: unspecified COPD Qualified Code(s): J44.9 - Chronic obstructive pulmonary disease, unspecified (3) Acute on chronic diastolic congestive heart failure Code(s): I50.33 - ACUTE ON CHRONIC DIASTOLIC (CONGESTIVE) HEART FAILURE (4) Atrial fibrillation Code(s): I48.91 - UNSPECIFIED ATRIAL FIBRILLATION Qualifiers: Atrial fibrillation type: paroxysmal Qualified Code(s): I48.0 - Paroxysmal atrial fibrillation Assessment/Plan 1. Clinical presentation suggests acute on chronic LV diastolic failure 2. Paroxysmal atrial fibrillation now in sinus rhythm 3. COPD 4. Hyponatremia and hypokalemia PLAN: 1. IV diuretics and monitor renal function and electrolytes. Patient was also started on Zaroxolyn, but to be used short term. K supplement. Monitor I/Os 2. Continue Cardizem PO 3. Continue Eliquis 4. Bronchodilator, steroids and O2. Discontinue ann catheter Further plans are to follow Juan R Gonzalez MD
--- NOTE | 2016-12-20 12:43 | PN ---
Progress Note (short form) - Note Progress Note: Feeling better. no acute distress, oxygen dependent. Temperature 98.7 F 12/20/16 06:04 Pulse Rate 76 12/20/16 06:04 Respiratory Rate 18 12/20/16 06:04 Blood Pressure 118/46 12/20/16 06:04 O2 Sat by Pulse Oximetry (%) 97 12/19/16 21:30 GENERAL: Awake, alert, and fully oriented, in no acute distress. HEAD: Normal with no signs of trauma. EYES: Pupils equal, round and reactive to light, extraocular movements intact, sclera anicteric, conjunctiva clear. EARS, NOSE, THROAT: Ears normal, oropharynx clear without exudates. Moist mucous membranes. NECK: Normal range of motion, supple without lymphadenopathy, JVD, or masses. LUNGS: decreased Breath sounds BL , Decreased air entry BL, no crackles. No accessory muscle use. HEART: Regular rate and rhythm, S1 and S2 positive, AMRIK 2/6 , no rub or gallop. ABDOMEN: Soft, nontender, not distended, normoactive bowel sounds, no guarding, no rebound, no masses. MUSCULOSKELETAL: Normal range of motion at all joints. No bony deformities or tenderness. No CVA tenderness. EXTREMITIES: 2+ pulses, warm, well-perfused. No calf tenderness. No peripheral edema. NEUROLOGICAL: Cranial nerves II-XII intact. Normal speech. PSYCHIATRIC: Cooperative. Good eye contact. Appropriate mood and affect. SKIN: Warm, dry, normal turgor, no rashes or lesions noted. CBCD WBC 14.4 K/mm3 (4.0-10.0) H D 12/20/16 06:00 RBC 4.71 M/mm3 (3.60-5.2) 12/20/16 06:00 Hgb 12.5 GM/dL (10.7-15.3) 12/20/16 06:00 Hct 38.8 % (32.4-45.2) 12/20/16 06:00 MCV 82.4 fl (80-96) 12/20/16 06:00 MCHC 32.2 g/dl (32.0-36.0) 12/20/16 06:00 RDW 13.0 % (11.6-15.6) 12/20/16 06:00 Plt Count 226 K/MM3 (134-434) 12/20/16 06:00 MPV 8.5 fl (7.5-11.1) 12/20/16 06:00 CMP Sodium 128 mmol/L (136-145) L 12/20/16 06:00 Potassium 3.4 mmol/L (3.5-5.1) L 12/20/16 06:00 Chloride 75 mmol/L (98-107) L 12/20/16 06:00 Carbon Dioxide 42 mmol/L (21-32) H 12/20/16 06:00 Anion Gap 11 (8-16) 12/20/16 06:00 BUN 16 mg/dL (7-18) 12/20/16 06:00 Creatinine 0.6 mg/dL (0.55-1.02) 12/20/16 06:00 Creat Clearance w eGFR > 60 (>60) 12/20/16 06:00 Random Glucose 122 mg/dL (74-106) H D 12/20/16 06:00 Calcium 8.4 mg/dL (8.5-10.1) L 12/20/16 06:00 Total Bilirubin 0.5 mg/dL (0.2-1.0) D 12/20/16 06:00 AST 20 U/L (15-37) 12/20/16 06:00 ALT 23 U/L (12-78) 12/20/16 06:00 Alkaline Phosphatase 104 U/L (45-117) 12/20/16 06:00 Total Protein 6.0 g/dl (6.4-8.2) L 12/20/16 06:00 Albumin 2.9 g/dl (3.4-5.0) L 12/20/16 06:00 CARDIAC ENZYMES Creatine Kinase 54 IU/L (26-192) 12/19/16 10:24 Troponin I < 0.02 ng/ml (0.00-0.05) 12/19/16 18:18 Current Medications Generic Name Dose Route Start Last Admin Trade Name Freq PRN Reason Stop Dose Admin Acetaminophen 650 mg 12/19/16 16:45 Tylenol - PO Q6H PRN Aclidinium [place] 1 puff 12/19/16 22:00 12/20/16 09:59 Tudorza - IH 1 puff BID CHRIS Administration Albuterol Sulfate 2 puff 12/19/16 18:00 Ventolin Hfa Inhaler - IH Q4H PRN Albuterol/Ipratropium 1 amp 12/19/16 19:57 Duoneb - NEB Q6H PRN SHORTNESS OF BREATH Alprazolam 0.25 mg 12/19/16 19:56 12/20/16 10:09 Xanax - PO 0.25 mg TID PRN Administration ANXIETY Apixaban 5 mg 12/19/16 22:00 12/20/16 09:58 Eliquis - PO 5 mg BID CHRIS Administration Budesonide/Formoterol Fumarate 2 puff 12/19/16 22:00 12/20/16 09:58 Symbicort 160/4.5mcg - IH 2 puff BID CHRIS Administration Diltiazem HCl 60 mg 12/19/16 22:00 12/20/16 09:58 Cardizem - PO 60 mg BID CHRIS Administration Docusate Sodium 100 mg 12/19/16 22:00 12/19/16 23:34 Colace - PO 100 mg HS CHRIS Administration Furosemide 20 mg 12/20/16 06:00 12/20/16 06:35 Lasix Injection - IVPB 20 mg BID@0600,1400 CHRIS Administration Guaifenesin 600 mg 12/19/16 22:00 12/20/16 11:36 Mucinex - PO Not Given BID CHRIS Magnesium Hydroxide 30 ml 12/20/16 10:00 12/20/16 09:58 Milk Of Magnesia - PO 30 ml DAILY CHRIS Administration Methylprednisolone Sodium Succinate 40 mg 12/19/16 20:15 12/20/16 09:58 Solu-Medrol - IVPB 40 mg Q8H-IV CHRIS Administration Metolazone 2.5 mg 12/20/16 05:30 12/20/16 05:58 Zaroxolyn - PO 2.5 mg DAILY@0530 CHRIS Administration Nystatin 500,000 units 12/20/16 06:00 12/20/16 11:43 Nystatin Oral Suspension - PO 500,000 units Q6HPO CHRIS Administration Potassium Chloride 20 meq 12/20/16 10:00 12/20/16 11:36 K-Dur - PO 12/23/16 09:59 20 meq BID CHRIS Administration Ranitidine HCl 75 mg 12/20/16 10:00 12/20/16 11:36 Zantac - PO 75 mg DAILY CHRIS Administration Laboratory Tests 12/19/16 12/19/16 12/19/16 10:24 18:18 18:18 Sodium 130 L 126 L Potassium 2.5 L* 3.3 L D Chloride 73 L 69 L Carbon Dioxide 51 H > 45 H Troponin I 0.02 < 0.02 12/20/16 06:00 Sodium 128 L Potassium 3.4 L Chloride 75 L Carbon Dioxide 42 H Troponin I ASSESSMENT AND PLAN: Patient is a 76 yr old woman with emphysema (oxygen dependent), diastolic CHF, HTN presents with worsening dyspnea found to be hypokalemic admitted for acute diastolic CHF. # Acute exacerbation of diastolic CHF , ACS is rulled out by neg.troponins , cardiology consult appreciated, Lasix 20mg IV BID will add potassium po bid # Acute COPD exacerbation with elevated Hco3 on chemistry , but patient is refusing ABG ,on nebs, for consult in am , continue home meds #Acute Hyponatremia will monitor ; restrict fluid to 1 liter # Acute Hypokalemia with potassium of 2.5 , potassium rider x 3 , given po potassium, as well, added potassium bid with lasix # Hx of Afib rate is controlled on Eliquis and cardizem to continue DVT PX: Eliquis Visit type - Emergency Visit Emergency Visit: Yes ED Registration Date: 12/19/16 Care time: The patient presented to the Emergency Department on the above date and was hospitalized for further evaluation of their emergent condition. - New Patient This patient is new to me today: No - Critical Care Critical Care patient: No
--- NOTE | 2016-12-20 15:00 | CON.PULM ---
Consult Consult Specialty:: PULM/CCM Referred by:: FRAN Reason for Consultation:: SOB - History of Present Illness Chief Complaint: SOB / feet swelling History of Present Illness: 76 F, O2 dependent COPD (2 to 3 L NC), HTN, and diastolic CHF. Admitted via the ER from the SNF due worsening shortness of breath and weakness for the past several days. Patient reports some mild swelling in her feet. No calf tenderness or cramps. No VTE history. No travel history or sick contacts. Some increase in thick yellow/brownish secretions. CXR: bases are partially excluded : old granulomatous disease and chronic changes / no acute process - History Source History Provided By: Patient Limitations to Obtaining History: No Limitations - Past Medical History Cardio/Vascular: Yes: AFIB Pulmonary: Yes: COPD - Past Surgical History Past Surgical History: Yes: Appendectomy, Cholecystectomy - Alcohol/Substance Use Hx Alcohol Use: Yes (social) - Smoking History Smoking history: Former smoker Have you smoked in the past 12 months: No If you are a former smoker, when did you quit?: 1977 Home Medications - Allergies Allergies/Adverse Reactions: Allergies Allergy/AdvReac Type Severity Reaction Status Date / Time No Known Allergies Allergy Verified 12/19/16 10:04 - Home Medications Home Medications: Ambulatory Orders Acetaminophen [Tylenol -] 1,000 mg PO Q8H PRN 12/19/16 Albuterol Sulfate [Proair Respiclick] 90 mcg IH QID 12/19/16 Alprazolam [Alprazolam ER] 0.25 mg PO TID 12/19/16 Apixaban [Eliquis] 5 mg PO BID 12/19/16 Calcium Carbonate [Tums Ultra] 500 mg PO TID 12/19/16 Diltiazem [Cardizem -] 60 mg PO BID 12/19/16 Docusate Sodium [Colace -] 100 mg PO HS 12/19/16 Furosemide [Lasix] 20 mg PO DAILY 12/19/16 Guaifenesin [Mucinex] 600 mg PO BID 12/19/16 Magnesium Hydrox 2400MG/30Ml [Milk of Magnesia -] 30 ml PO DAILY 12/19/16 Metolazone [Zaroxolyn -] 2.5 mg PO DAILY 12/19/16 Prednisone 10 mg PO DAILY 12/19/16 Ranitidine HCl 75 mg PO DAILY 12/19/16 Salmeterol/Fluticasone [Advair 500Mcg/50Mcg -] 1 inh IH BID 12/19/16 Tiotropium [place] [Spiriva] 18 mcg IH DAILY 12/19/16 Family Disease History - Family Disease History Family Disease History: CA: Mother (Breast), Daughter (Breast) Review of Systems - Review of Systems Constitutional: reports: Malaise, Weakness. denies: Chills, Fever, Night Sweats Eyes: reports: No Symptoms HENT: reports: No Symptoms Neck: reports: No Symptoms Cardiovascular: reports: Edema. denies: Chest Pain, Palpitations, Shortness of Breath Respiratory: reports: Cough, SOB, SOB on Exertion, Wheezing. denies: Hemoptysis Gastrointestinal: reports: No Symptoms Genitourinary: reports: No Symptoms Breasts: reports: No Symptoms Reported Musculoskeletal: reports: No Symptoms Integumentary: reports: No Symptoms Neurological: reports: No Symptoms Endocrine: reports: No Symptoms Hematology/Lymphatic: reports: No Symptoms Psychiatric: reports: No Symptoms Physical Exam Vital Sings: Vital Signs Temperature 98.1 F 12/20/16 09:00 Pulse Rate 90 12/20/16 12:52 Respiratory Rate 22 12/20/16 09:00 Blood Pressure 132/63 12/20/16 09:00 O2 Sat by Pulse Oximetry (%) 93 L 12/20/16 12:52 Constitutional: Yes: No Distress, Thin Eyes: Yes: Conjunctiva Clear, EOM Intact HENT: Yes: Atraumatic, Normocephalic Neck: Yes: Supple, Trachea Midline Cardiovascular: Yes: Tachycardia, Pulse Irregular Respiratory: Yes: Cough, Diminished, On Nasal O2, Rhonchi, SOB, SOB on Exertion , Tachypnea, Wheezes. No: Accessory Muscle Use, Stridor ...Inspection: Yes: WNL ...Clubbing: No Gastrointestinal: Yes: Normal Bowel Sounds, Soft Renal/: Yes: WNL Musculoskeletal: Yes: WNL Extremities: Yes: WNL Edema: No Peripheral Pulses WNL: Yes Integumentary: Yes: WNL Neurological: Yes: Alert, Oriented ...Motor Strength: WNL Psychiatric: Yes: WNL, Alert, Oriented Labs: CBC, BMP 12/20/16 06:00 12/20/16 06:00 Imaging - Results Chest X-ray: Report Reviewed, Image Reviewed Problem List - Problems (1) Acute on chronic diastolic congestive heart failure Code(s): I50.33 - ACUTE ON CHRONIC DIASTOLIC (CONGESTIVE) HEART FAILURE (2) Atrial fibrillation Code(s): I48.91 - UNSPECIFIED ATRIAL FIBRILLATION Qualifiers: Atrial fibrillation type: paroxysmal Qualified Code(s): I48.0 - Paroxysmal atrial fibrillation (3) Congestive heart failure (CHF) Code(s): I50.9 - HEART FAILURE, UNSPECIFIED Qualifiers: Congestive heart failure type: combined Congestive heart failure chronicity: acute Qualified Code(s): I50.41 - Acute combined systolic ( congestive) and diastolic (congestive) heart failure (4) Dyspnea Code(s): R06.00 - DYSPNEA, UNSPECIFIED Qualifiers: Dyspnea type: dyspnea on exertion Qualified Code(s): R06.09 - Other forms of dyspnea (5) Oxygen dependent Code(s): Z99.81 - DEPENDENCE ON SUPPLEMENTAL OXYGEN (6) Acute exacerbation of chronic bronchitis Code(s): J20.9 - ACUTE BRONCHITIS, UNSPECIFIED J42 - UNSPECIFIED CHRONIC BRONCHITIS Assessment/Plan BD TX Medrol O2 as needed Would monitor off ABX Lasix as needed (does not look volume overloaded) Symbicort BID Daily weight Chinar[place]rian Will follow Thank you. Dr Millan
[2016-12-20] MEDS: DOCUSATE SODIUM 100 MG CAPSULE (FP) PO SCH (21:54)
[2016-12-21] MEDS: NYSTATIN 500,000 UNITS/5 ML SUSPENSION PO SCH ×4 (00:11→18:25)
[2016-12-21] MEDS: methylPREDNISolone NA SUCC 40 MG/1 ML VIAL IVPB SCH ×3 (02:11→18:24)
[2016-12-21] MEDS: METOLAZONE 2.5 MG TABLET (FP) PO SCH (05:35)
[2016-12-21] MEDS: FUROSEMIDE 40 MG/4 ML INJECTABLE VIAL IVPB SCH ×2 (06:08→15:12)
--- NOTE | 2016-12-21 09:18 | PN ---
Progress Note, Physician Chief Complaint: Less SOB today, but still appears anxious History of Present Illness: Patient was seen and examined. Awake and alert. Chart was reviewed Denies chest pain or palpitation. Less SOB - Current Medication List Current Medications: Active Medications Acetaminophen (Tylenol -) 650 mg PO Q6H PRN Aclidinium [place] (Tudorza -) 1 puff IH BID [facility] Last Admin: 12/20/16 21:55 Dose: 1 puff Albuterol Sulfate (Ventolin Hfa Inhaler -) 2 puff IH Q4H PRN Albuterol/Ipratropium (Duoneb -) 1 amp NEB Q6H PRN PRN Reason: SHORTNESS OF BREATH Alprazolam (Xanax -) 0.25 mg PO TID PRN PRN Reason: ANXIETY Last Admin: 12/20/16 21:55 Dose: 0.25 mg Apixaban (Eliquis -) 5 mg PO BID [facility] Last Admin: 12/20/16 21:54 Dose: 5 mg Budesonide/Formoterol Fumarate (Symbicort 160/4.5mcg -) 2 puff IH BID [facility] Last Admin: 12/20/16 21:55 Dose: 2 puff Diltiazem HCl (Cardizem -) 60 mg PO BID [facility] Last Admin: 12/20/16 21:54 Dose: 60 mg Docusate Sodium (Colace -) 100 mg PO HS [facility] Last Admin: 12/20/16 21:54 Dose: 100 mg Furosemide (Lasix Injection -) 20 mg IVPB BID@0600,1400 [facility] Last Admin: 12/21/16 06:08 Dose: 20 mg Guaifenesin (Mucinex -) 600 mg PO BID [facility] Last Admin: 12/20/16 21:55 Dose: Not Given Magnesium Hydroxide (Milk Of Magnesia -) 30 ml PO DAILY [facility] Last Admin: 12/20/16 09:58 Dose: 30 ml Methylprednisolone Sodium Succinate (Solu-Medrol -) 40 mg IVPB Q8H-IV [facility] Last Admin: 12/21/16 02:11 Dose: 40 mg Metolazone (Zaroxolyn -) 2.5 mg PO DAILY@0530 [facility] Last Admin: 12/21/16 05:35 Dose: 2.5 mg Nystatin (Nystatin Oral Suspension -) 500,000 units PO Q6HPO [facility] Last Admin: 12/21/16 06:08 Dose: 500,000 units Potassium Chloride (K-Dur -) 20 meq PO BID [facility] Stop: 12/23/16 09:59 Last Admin: 12/20/16 21:54 Dose: 20 meq Ranitidine HCl (Zantac -) 75 mg PO DAILY [facility] Last Admin: 12/20/16 11:36 Dose: 75 mg - Objective Vital Signs: Vital Signs Temperature 98.3 F 12/21/16 06:20 Pulse Rate 68 12/21/16 06:20 Respiratory Rate 20 12/21/16 06:20 Blood Pressure 122/54 12/21/16 06:20 O2 Sat by Pulse Oximetry (%) 95 12/20/16 21:00 Neck: Yes: Supple Cardiovascular: Yes: Regular Rate and Rhythm, S1, S2. No: Murmur Respiratory: Yes: Diminished Gastrointestinal: Yes: Normal Bowel Sounds, Soft. No: Tenderness Edema: No Labs: CBC, BMP 12/20/16 06:00 12/20/16 06:00 Problem List - Problems (1) Dyspnea Code(s): R06.00 - DYSPNEA, UNSPECIFIED Qualifiers: Dyspnea type: dyspnea on exertion Qualified Code(s): R06.09 - Other forms of dyspnea (2) COPD (chronic obstructive pulmonary disease) Code(s): J44.9 - CHRONIC OBSTRUCTIVE PULMONARY DISEASE, UNSPECIFIED Qualifiers : COPD type: unspecified COPD Qualified Code(s): J44.9 - Chronic obstructive pulmonary disease, unspecified (3) Acute on chronic diastolic congestive heart failure Code(s): I50.33 - ACUTE ON CHRONIC DIASTOLIC (CONGESTIVE) HEART FAILURE (4) Atrial fibrillation Code(s): I48.91 - UNSPECIFIED ATRIAL FIBRILLATION Qualifiers: Atrial fibrillation type: paroxysmal Qualified Code(s): I48.0 - Paroxysmal atrial fibrillation Assessment/Plan 1. Clinical presentation suggests acute on chronic LV diastolic failure 2. Paroxysmal atrial fibrillation now in sinus rhythm 3. COPD exacerbation 4. Hyponatremia and hypokalemia PLAN: 1. IV diuretics and monitor renal function and electrolytes. Patient was also started on Zaroxolyn, but to be used short term. K supplement. Monitor I/Os 2. Continue Cardizem PO 3. Continue Eliquis 4. Bronchodilator, steroids and O2. Continue treatment as per Pulmonary service Further plans are to follow Juan R Gonzalez MD
--- NOTE | 2016-12-21 09:20 | PN ---
Physical Exam: SUBJECTIVE: Patient seen and examined c/o constipation. does not feel that her breathing has improved at all. OBJECTIVE: Vital Signs Period Temp Pulse Resp BP Sys/Paige Pulse Ox Last 24 Hr 97.6 F-99.0 F 68-90 20-20 122-150/48-66 93-95 GENERAL: thin, elderly woman. The patient is awake, alert, and fully oriented, in no acute distress. HEAD: Normal with no signs of trauma. EYES: PERRL, extraocular movements intact, sclera anicteric, conjunctiva clear. No ptosis. ENT: Ears normal, nares patent, oropharynx w/improved thrush, moist mucous membranes. NECK: Trachea midline, full range of motion, supple. LUNGS: Breath sounds diminished throughout. nasal cannula 3lp continuous. HEART: Regular rate and rhythm, S1, S2 without murmur, rub or gallop. ABDOMEN: Soft, nontender, nondistended, normoactive bowel sounds, no guarding, no rebound. EXTREMITIES: 2+ pulses, warm, well-perfused, no edema. b/l erythema on toes and dorsum of feet upto ankles. NEUROLOGICAL: Normal speech, gait not observed. PSYCH: Normal mood, normal affect. Active Medications Generic Name Dose Route Start Last Admin Trade Name Freq PRN Reason Stop Dose Admin Acetaminophen 650 mg 12/19/16 16:45 Tylenol - PO Q6H PRN Aclidinium [place] 1 puff 12/19/16 22:00 12/20/16 21:55 Tudorza - IH 1 puff BID CHRIS Administration Albuterol Sulfate 2 puff 12/19/16 18:00 Ventolin Hfa Inhaler - IH Q4H PRN Albuterol/Ipratropium 1 amp 12/19/16 19:57 Duoneb - NEB Q6H PRN SHORTNESS OF BREATH Alprazolam 0.25 mg 12/19/16 19:56 12/20/16 21:55 Xanax - PO 0.25 mg TID PRN Administration ANXIETY Apixaban 5 mg 12/19/16 22:00 12/20/16 21:54 Eliquis - PO 5 mg BID CHRIS Administration Budesonide/Formoterol Fumarate 2 puff 12/19/16 22:00 12/20/16 21:55 Symbicort 160/4.5mcg - IH 2 puff BID CHRIS Administration Diltiazem HCl 60 mg 12/19/16 22:00 12/20/16 21:54 Cardizem - PO 60 mg BID CHRIS Administration Docusate Sodium 100 mg 12/19/16 22:00 12/20/16 21:54 Colace - PO 100 mg HS CHRIS Administration Furosemide 20 mg 12/20/16 06:00 12/21/16 06:08 Lasix Injection - IVPB 20 mg BID@0600,1400 CHRIS Administration Guaifenesin 600 mg 12/19/16 22:00 12/20/16 21:55 Mucinex - PO Not Given BID CHRIS Magnesium Hydroxide 30 ml 12/20/16 10:00 12/20/16 09:58 Milk Of Magnesia - PO 30 ml DAILY CHRIS Administration Methylprednisolone Sodium Succinate 40 mg 12/19/16 20:15 12/21/16 02:11 Solu-Medrol - IVPB 40 mg Q8H-IV CHRIS Administration Metolazone 2.5 mg 12/20/16 05:30 12/21/16 05:35 Zaroxolyn - PO 2.5 mg DAILY@0530 CHRIS Administration Nystatin 500,000 units 12/20/16 06:00 12/21/16 06:08 Nystatin Oral Suspension - PO 500,000 units Q6HPO CHRIS Administration Potassium Chloride 20 meq 12/20/16 10:00 12/20/16 21:54 K-Dur - PO 12/23/16 09:59 20 meq BID CHRIS Administration Ranitidine HCl 75 mg 12/20/16 10:00 12/20/16 11:36 Zantac - PO 75 mg DAILY CHRIS Administration ASSESSMENT/PLAN: 76 yr old woman with emphysema (oxygen dependent), diastolic CHF, HTN presents with worsening dyspnea found to be hypokalemic admitted for acute diastolic CHF. #SOb secondary to acute CHF exacerbation - lasix 20mg IVPB BID - I&O, daily weights - ann in place - monitor electrolytes - serum osm 268, low, fluid restrict #Hyponatremia, serum osm 268 - urine creatine, urea and sodium for further evaluation #Hypokalemia, likely from diuretic use - replete po 20 meq po, unable to tolerate soln or IV #Arrhythmia - cardizem 60mg po BID - eliquis 5mg po bid #Thrush, likely from inhalers - nystatin swich&swallow q6hr #Emphysema - oxygen dependent - continous oxygen 3lpm, maintain oxygen sat >90% - solu-medrol 60mg IVPb q8hr - increased from 40 --start 12/20 - symbicort, mucinex,duonebs,ventolin, tudorza #HTN - metalazone #GERD - ranitidine, milk of magnesia #Anxiety - xanax 0.25 TID #DVT - on eliquis #Diet: low sodium Code: DNR/DNI Visit type - Emergency Visit Emergency Visit: No - New Patient This patient is new to me today: No - Critical Care Critical Care patient: No
[2016-12-21] MEDS ORDERED: PT OWN MED DRAWER 7, Y5N ONE ×2 (09:40→09:55)
[2016-12-21] MEDS: MAGNESIUM HYDROX 2400MG/30ML ORAL SUSPENSION 30 ML CUP PO SCH ×2 (09:44→10:01)
[2016-12-21] MEDS: APIXABAN 5 MG TABLET PO SCH ×2 (09:45→21:40)
[2016-12-21] MEDS: RANITIDINE HCL 150 MG TABLET (FP) PO SCH (09:45)
[2016-12-21] MEDS: dilTIAZem HCL 60 MG TABLET (FP) PO SCH ×2 (09:45→21:39)
[2016-12-21] MEDS: POTASSIUM CHLORIDE TABS 20 MEQ TABLET.ER (FP) PO SCH ×3 (09:45→21:40)
[2016-12-21] MEDS: BUDESONIDE/FORMETEROL FUMARATE 160/4.5 mcg INHALER IH SCH ×2 (09:47→21:41)
[2016-12-21] MEDS: ACLIDINIUM BROMIDE 400 MCG/INH AERO.POWD IH SCH (09:47)
--- NOTE | 2016-12-21 09:49 | PN ---
Progress Note (short form) - Note Progress Note: PULMONARY Breathing not significantly improved from yesterday, dyspneic with minimal exertion. +nonproductive cough but not much wheezing. No fevers or chills. Last Vital Signs Temp Pulse Resp BP Pulse Ox 98.3 F 68 20 122/54 95 12/21/16 06:20 12/21/16 06:20 12/21/16 06:20 12/21/16 06:20 12/20/16 21:00 Gen: mildly tachypneic with speaking Heart: RRR Lung: distant breath sounds, no wheezes Abd: soft, nontender Ext: no edema CBC, BMP 12/20/16 06:00 12/20/16 06:00 Active Medications Acetaminophen (Tylenol -) 650 mg PO Q6H PRN Aclidinium [place] (Tudorza -) 1 puff IH BID [facility] Last Admin: 12/20/16 21:55 Dose: 1 puff Albuterol Sulfate (Ventolin Hfa Inhaler -) 2 puff IH Q4H PRN Albuterol/Ipratropium (Duoneb -) 1 amp NEB Q6H PRN PRN Reason: SHORTNESS OF BREATH Alprazolam (Xanax -) 0.25 mg PO TID PRN PRN Reason: ANXIETY Last Admin: 12/20/16 21:55 Dose: 0.25 mg Apixaban (Eliquis -) 5 mg PO BID [facility] Last Admin: 12/20/16 21:54 Dose: 5 mg Budesonide/Formoterol Fumarate (Symbicort 160/4.5mcg -) 2 puff IH BID [facility] Last Admin: 12/20/16 21:55 Dose: 2 puff Diltiazem HCl (Cardizem -) 60 mg PO BID [facility] Last Admin: 12/20/16 21:54 Dose: 60 mg Docusate Sodium (Colace -) 100 mg PO HS [facility] Last Admin: 12/20/16 21:54 Dose: 100 mg Furosemide (Lasix Injection -) 20 mg IVPB BID@0600,1400 [facility] Last Admin: 12/21/16 06:08 Dose: 20 mg Guaifenesin (Mucinex -) 600 mg PO BID [facility] Last Admin: 12/20/16 21:55 Dose: Not Given Magnesium Hydroxide (Milk Of Magnesia -) 30 ml PO DAILY [facility] Last Admin: 02/20/17 09:58 Dose: 30 ml Methylprednisolone Sodium Succinate (Solu-Medrol -) 40 mg IVPB Q8H-IV [facility] Last Admin: 12/21/16 02:11 Dose: 40 mg Metolazone (Zaroxolyn -) 2.5 mg PO DAILY@0530 [facility] Last Admin: 12/21/16 05:35 Dose: 2.5 mg Nystatin (Nystatin Oral Suspension -) 500,000 units PO Q6HPO [facility] Last Admin: 12/21/16 06:08 Dose: 500,000 units Potassium Chloride (K-Dur -) 20 meq PO BID [facility] Stop: 12/23/16 09:59 Last Admin: 12/20/16 21:54 Dose: 20 meq Ranitidine HCl (Zantac -) 75 mg PO DAILY [facility] Last Admin: 12/20/16 11:36 Dose: 75 mg A/P Acute COPD Exacerbation Acute on LV Diastolic Heart Failure improving Paroxsmal Atrial Fibrillation Hyponatremia - continue medrol at current dose - inhaled bronchodilators standing and PRN, will change to 1/2 dose albuterol as she states palpitations with full dose - will add miralax - O2 to keep SpO2 >90% - lasix, zaroxolyn as needed - continue anticoagulation
[2016-12-21] MEDS: guaiFENesin 600 MG TABLET.ER (FP) PO SCH ×2 (09:50→22:00)
[2016-12-21] MEDS: POLYETHYLENE GLYCOL 3350 119 GM BTL PO SCH (11:45)
[2016-12-21] MEDS ORDERED: GLYCERIN 1 RECTAL SUPPOSITORY, ADULT RC ONE (12:29)
[2016-12-21] MEDS ORDERED: GLYCERIN 1 RECTAL SUPPOSITORY, ADULT PR ONE (12:29)
[2016-12-21] MEDS: IPRATROPIUM BR 0.02% 0.5 MG/2.5 ML VIAL.NEB. NEB SCH ×3 (13:45→18:23)
[2016-12-21] MEDS: KCL 10 MEQ IVPB 100 ML IVPB SCH ×2 (14:06→15:13)
[2016-12-21] MEDS: ALBUTEROL SO4 0.042% IH SOL 1.25 MG/3 ML VIAL.NEB NEB SCH ×3 (14:35→18:23)
[2016-12-21] MEDS ORDERED: MINERAL OIL ENEMA 133 ML ENEMA PR PRN (15:15)
--- NOTE | 2016-12-21 21:00 | PN ---
Teaching Attending Note Name of Resident: Cindy Jeter ATTENDING PHYSICIAN STATEMENT I saw and evaluated the patient. I reviewed the resident's note and discussed the case with the resident. I agree with the resident's findings and plan as documented. SUBJECTIVE: Patient is not feeling well today OBJECTIVE: Vital Signs Temperature 98.7 F 12/21/16 16:15 Pulse Rate 81 12/21/16 16:15 Respiratory Rate 20 12/21/16 16:15 Blood Pressure 151/58 12/21/16 16:15 O2 Sat by Pulse Oximetry (%) 97 12/21/16 09:00 GENERAL: Awake, alert, and fully oriented, in no acute distress. HEAD: Normal with no signs of trauma. EYES: Pupils equal, round and reactive to light, extraocular movements intact, sclera anicteric, conjunctiva clear. EARS, NOSE, THROAT: Ears normal, oropharynx clear without exudates. Moist mucous membranes. NECK: Normal range of motion, supple without lymphadenopathy, JVD, or masses. LUNGS: decreased Breath sounds BL , Decreased air entry BL, no crackles. No accessory muscle use. HEART: Regular rate and rhythm, S1 and S2 positive, AMRIK 2/6 , no rub or gallop. ABDOMEN: Soft, nontender, not distended, normoactive bowel sounds, no guarding, no rebound, no masses. MUSCULOSKELETAL: Normal range of motion at all joints. No bony deformities or tenderness. No CVA tenderness. EXTREMITIES: 2+ pulses, warm, well-perfused. No calf tenderness. No peripheral edema. NEUROLOGICAL: Cranial nerves II-XII intact. Normal speech. PSYCHIATRIC: Cooperative. Good eye contact. Appropriate mood and affect. SKIN: Warm, dry, normal turgor, no rashes or lesions noted. CBCD WBC 14.4 K/mm3 (4.0-10.0) H D 12/20/16 06:00 RBC 4.71 M/mm3 (3.60-5.2) 12/20/16 06:00 Hgb 12.5 GM/dL (10.7-15.3) 12/20/16 06:00 Hct 38.8 % (32.4-45.2) 12/20/16 06:00 MCV 82.4 fl (80-96) 12/20/16 06:00 MCHC 32.2 g/dl (32.0-36.0) 12/20/16 06:00 RDW 13.0 % (11.6-15.6) 12/20/16 06:00 Plt Count 226 K/MM3 (134-434) 12/20/16 06:00 MPV 8.5 fl (7.5-11.1) 12/20/16 06:00 CMP Sodium 128 mmol/L (136-145) L 12/20/16 06:00 Potassium 3.4 mmol/L (3.5-5.1) L 12/20/16 06:00 Chloride 75 mmol/L (98-107) L 12/20/16 06:00 Carbon Dioxide 42 mmol/L (21-32) H 12/20/16 06:00 Anion Gap 11 (8-16) 12/20/16 06:00 BUN 16 mg/dL (7-18) 12/20/16 06:00 Creatinine 0.6 mg/dL (0.55-1.02) 12/20/16 06:00 Creat Clearance w eGFR > 60 (>60) 12/20/16 06:00 Random Glucose 122 mg/dL (74-106) H D 12/20/16 06:00 Calcium 8.4 mg/dL (8.5-10.1) L 12/20/16 06:00 Total Bilirubin 0.5 mg/dL (0.2-1.0) D 12/20/16 06:00 AST 20 U/L (15-37) 12/20/16 06:00 ALT 23 U/L (12-78) 12/20/16 06:00 Alkaline Phosphatase 104 U/L (45-117) 12/20/16 06:00 Total Protein 6.0 g/dl (6.4-8.2) L 12/20/16 06:00 Albumin 2.9 g/dl (3.4-5.0) L 12/20/16 06:00 CARDIAC ENZYMES Creatine Kinase 54 IU/L (26-192) 12/19/16 10:24 Troponin I < 0.02 ng/ml (0.00-0.05) 12/19/16 18:18 Current Medications Generic Name Dose Route Start Last Admin Trade Name Freq PRN Reason Stop Dose Admin Acetaminophen 650 mg 12/19/16 16:45 Tylenol - PO Q6H PRN Albuterol Sulfate 2 puff 12/19/16 18:00 Ventolin Hfa Inhaler - IH Q4H PRN Albuterol Sulfate 1 amp 12/21/16 12:00 12/21/16 18:23 Ventolin 0.042trength) - NEB 1 amp QIDR CHRIS Administration Alprazolam 0.25 mg 12/19/16 19:56 12/20/16 21:55 Xanax - PO 0.25 mg TID PRN Administration ANXIETY Apixaban 5 mg 12/19/16 22:00 12/21/16 09:45 Eliquis - PO 5 mg BID CHRIS Administration Budesonide/Formoterol Fumarate 2 puff 12/19/16 22:00 12/21/16 09:47 Symbicort 160/4.5mcg - IH 2 puff BID CHRIS Administration Diltiazem HCl 60 mg 12/19/16 22:00 12/21/16 09:45 Cardizem - PO 60 mg BID CHRIS Administration Docusate Sodium 100 mg 12/19/16 22:00 12/20/16 21:54 Colace - PO 100 mg HS CHRIS Administration Furosemide 20 mg 12/20/16 06:00 12/21/16 15:12 Lasix Injection - IVPB 20 mg BID@0600,1400 CHRIS Administration Guaifenesin 600 mg 12/19/16 22:00 12/21/16 09:50 Mucinex - PO Not Given BID CHRIS Ipratropium [place] 1 amp 12/21/16 12:00 12/21/16 18:23 Atrovent 0.02% Nebulizer - NEB 1 amp QIDR CHRIS Administration Magnesium Hydroxide 30 ml 12/20/16 10:00 12/21/16 10:01 Milk Of Magnesia - PO Not Given DAILY CHRIS Methylprednisolone Sodium Succinate 60 mg 12/21/16 12:26 12/21/16 18:24 Solu-Medrol - IVPB 60 mg Q8H-IV CHRIS Administration Metolazone 2.5 mg 12/20/16 05:30 12/21/16 05:35 Zaroxolyn - PO 2.5 mg DAILY@0530 CHRIS Administration Mineral Oil 133 ml 12/21/16 15:15 Fleet Mineral Oil Rectal Enema - [place] DAILY PRN CONSTIPATION Nystatin 500,000 units 12/20/16 06:00 12/21/16 18:25 Nystatin Oral Suspension - PO 500,000 units Q6HPO CHRIS Administration Polyethylene Glycol 17 gm 12/21/16 11:00 12/21/16 11:45 Miralax (For Daily Use) - PO 17 grams DAILY CHRIS Administration Potassium Chloride 40 meq 12/21/16 16:00 12/21/16 18:25 K-Dur - PO 12/23/16 15:59 40 meq BID CHRIS Administration Ranitidine HCl 75 mg 12/20/16 10:00 12/21/16 09:45 Zantac - PO 75 mg DAILY CHRIS Administration Home Medications Medication Instructions Recorded Acetaminophen [Tylenol -] 1,000 mg PO Q8H PRN 12/19/16 Albuterol Sulfate [Proair 90 mcg IH QID 12/19/16 Respiclick] Alprazolam [Alprazolam ER] 0.25 mg PO TID 12/19/16 Apixaban [Eliquis] 5 mg PO BID 12/19/16 Calcium Carbonate [Tums Ultra] 500 mg PO TID 12/19/16 Diltiazem [Cardizem -] 60 mg PO BID 12/19/16 Docusate Sodium [Colace -] 100 mg PO HS 12/19/16 Furosemide [Lasix] 20 mg PO DAILY 12/19/16 Guaifenesin [Mucinex] 600 mg PO BID 12/19/16 Magnesium Hydrox 2400MG/30Ml [Milk 30 ml PO DAILY 12/19/16 of Magnesia -] Metolazone [Zaroxolyn -] 2.5 mg PO DAILY 12/19/16 Prednisone 10 mg PO DAILY 12/19/16 Ranitidine HCl 75 mg PO DAILY 12/19/16 Salmeterol/Fluticasone [Advair 1 inh IH BID 12/19/16 500Mcg/50Mcg -] Tiotropium [place] [Spiriva] 18 mcg IH DAILY 12/19/16 ASSESSMENT AND PLAN: Patient is a 76 yr old woman with emphysema (oxygen dependent), diastolic CHF, HTN presents with worsening dyspnea found to be hypokalemic admitted for acute diastolic CHF. # Acute exacerbation of diastolic CHF , ACS is rulled out by neg.troponins , cardiology consult appreciated, Lasix 20mg IV BID will add potassium po bid # Acute COPD exacerbation with elevated Hco3 on chemistry , but patient is refusing ABG ,on nebs, for consult in am , continue home meds #Acute Hyponatremia will restrict fluid to 1 liter, will get urine osmolarity and serum osmolarity # Acute Hypokalemia improving being repleted ,continue potassium bid with lasix # Hx of Afib rate is controlled on Eliquis and cardizem to continue DVT PX: Eliquis
[2016-12-21] MEDS: DOCUSATE SODIUM 100 MG CAPSULE (FP) PO SCH (21:40)
[2016-12-22] MEDS: NYSTATIN 500,000 UNITS/5 ML SUSPENSION PO SCH ×4 (00:54→18:16)
[2016-12-22] MEDS: methylPREDNISolone NA SUCC 40 MG/1 ML VIAL IVPB SCH ×4 (01:53→18:16)
[2016-12-22] MEDS: ALPRAZolam 0.25 MG TABLET PO PRN ×2 (02:00→22:27)
[2016-12-22] MEDS: METOLAZONE 2.5 MG TABLET (FP) PO SCH (05:52)
[2016-12-22] MEDS: FUROSEMIDE 40 MG/4 ML INJECTABLE VIAL IVPB SCH (06:23)
[2016-12-22] MEDS: IPRATROPIUM BR 0.02% 0.5 MG/2.5 ML VIAL.NEB. NEB SCH ×4 (06:30→17:40)
[2016-12-22] MEDS: ALBUTEROL SO4 0.042% IH SOL 1.25 MG/3 ML VIAL.NEB NEB SCH ×4 (06:30→17:40)
[2016-12-22 08:02] LABS: MCH 26.3 pg (25.7-33.7); MCHC 31.8 g/dl (32.0-36.0); MEAN CELL VOLUME 82.6 fl (80-96); MEAN PLT VOLUME 8.3 fl (7.5-11.1); PLATELET COUNT 273 K/MM3 (134-434); WHITE BLOOD COUNT 20.4 K/mm3 (4.0-10.0)
[2016-12-22 08:38] LABS: CALCIUM 9.3 mg/dL (8.5-10.1); CREATININE 0.7 mg/dL (0.55-1.02)
[2016-12-22] MEDS ORDERED: methylPREDNISolone NA SUCC 40 MG/1 ML VIAL IVPB SCH (11:04)
--- NOTE | 2016-12-22 11:11 | PN ---
Progress Note (short form) - Note Progress Note: PULMONARY EXTREMELY ANXIOUS VSS/AFEBRILE PALE/ANICTERIC DISTANT BREATH SOUNDS/NO WHEEZE S1S2 NSR/ WITH ECTOPICS BS+ SOFT NO EDEMA LABS/MEDS/NOTES/IMAGING/MICRO REVIEWED Acute COPD Exacerbation Acute on LV Diastolic Heart Failure improving Paroxsmal Atrial Fibrillation Hyponatremia - continue medrol will reduce current dose - inhaled bronchodilators standing and PRN, will change to 1/2 dose albuterol as she states palpitations with full dose - miralax - O2 to keep SpO2 >90% - lasix, zaroxolyn as needed - continue anticoagulation - continue alprazolam Meeta ALMANZAR MD
[2016-12-22] MEDS ORDERED: PT OWN MED DRAWER 7, Y5N ONE ×3 (11:19→22:01)
[2016-12-22] MEDS: POTASSIUM CHLORIDE TABS 20 MEQ TABLET.ER (FP) PO SCH ×2 (11:32→22:26)
[2016-12-22] MEDS: dilTIAZem HCL 60 MG TABLET (FP) PO SCH ×2 (11:32→22:25)
[2016-12-22] MEDS: MAGNESIUM HYDROX 2400MG/30ML ORAL SUSPENSION 30 ML CUP PO SCH (11:33)
[2016-12-22] MEDS: guaiFENesin 600 MG TABLET.ER (FP) PO SCH ×2 (11:33→22:27)
[2016-12-22] MEDS: RANITIDINE HCL 150 MG TABLET (FP) PO SCH (11:33)
[2016-12-22] MEDS: POLYETHYLENE GLYCOL 3350 119 GM BTL PO SCH ×2 (11:34→22:26)
[2016-12-22] MEDS: APIXABAN 5 MG TABLET PO SCH ×3 (11:34→22:47)
[2016-12-22] MEDS: BUDESONIDE/FORMETEROL FUMARATE 160/4.5 mcg INHALER IH SCH ×2 (11:35→22:27)
--- NOTE | 2016-12-22 14:33 | PN ---
Physical Exam: SUBJECTIVE: Patient seen and examined Is upset and struggling to make up her mind about hospice. feels hopeless about her situation, feels that she is dying and unable to take care of herself. doesn 't want to work with physical therapy because she thinks she can't do the work since she gets tired very easily. OBJECTIVE: Vital Signs Period Temp Pulse Resp BP Sys/Paige Pulse Ox Last 24 Hr 97.3 F-98.7 F 66-81 20-20 123-157/52-65 95-97 GENERAL: thin, elderly woman. The patient is awake, alert, and fully oriented, tearful in bed. HEAD: Normal with no signs of trauma. EYES: PERRL, extraocular movements intact, sclera anicteric, conjunctiva clear. No ptosis. ENT: oropharynx w/improved thrush, moist mucous membranes. NECK: Trachea midline, full range of motion, supple. LUNGS: Breath sounds clear, quiet throughout. nasal cannula 3lp continuous. HEART: Regular rate and rhythm, S1, S2 without murmur, rub or gallop. ABDOMEN: Soft, nontender, nondistended, normoactive bowel sounds, no guarding, no rebound. EXTREMITIES: 2+ pulses, warm, well-perfused, no edema. NEUROLOGICAL: Normal speech, gait not observed. PSYCH: Normal mood, normal affect. Laboratory Results - last 24 hr 12/22/16 12/22/16 06:20 06:20 WBC 20.4 H D RBC 5.29 H Hgb 13.9 D Hct 43.7 MCV 82.6 MCHC 31.8 L RDW 13.0 Plt Count 273 D MPV 8.3 Neutrophils % 92.0 H Lymphocytes % 3.0 L D Monocytes % 4.0 D Differential Comment Manual diff done Reactive Lymphocytes 1 Sodium 127 L Potassium 3.1 L Chloride 66 L D Carbon Dioxide 54 H D Anion Gap 7 L BUN 29 H D Creatinine 0.7 Random Glucose 139 H Calcium 9.3 Active Medications Active Medications Acetaminophen (Tylenol -) 650 mg PO Q6H PRN Albuterol Sulfate (Ventolin Hfa Inhaler -) 2 puff IH Q4H PRN Albuterol Sulfate (Ventolin 0.042trength) -) 1 amp NEB QIDR CHRIS Last Admin: 12/22/16 12:01 Dose: 1 amp Alprazolam (Xanax -) 0.25 mg PO TID PRN PRN Reason: ANXIETY Last Admin: 12/22/16 02:00 Dose: 0.25 mg Apixaban (Eliquis -) 5 mg PO BID [facility] Last Admin: 12/22/16 12:06 Dose: 5 mg Budesonide/Formoterol Fumarate (Symbicort 160/4.5mcg -) 2 puff IH BID [facility] Last Admin: 12/22/16 11:35 Dose: 2 puff Diltiazem HCl (Cardizem -) 60 mg PO BID [facility] Last Admin: 12/22/16 11:32 Dose: 60 mg Docusate Sodium (Colace -) 100 mg PO HS [facility] Last Admin: 12/21/16 21:40 Dose: 100 mg Furosemide (Lasix -) 20 mg PO DAILY [facility] Guaifenesin (Mucinex -) 600 mg PO BID [facility] Last Admin: 12/22/16 11:33 Dose: Not Given Ipratropium [place] (Atrovent 0.02% Nebulizer -) 1 amp NEB QIDR [facility] Last Admin: 12/22/16 12:00 Dose: 1 amp Magnesium Hydroxide (Milk Of Magnesia -) 30 ml PO DAILY [facility] Last Admin: 12/22/16 11:33 Dose: 30 ml Methylprednisolone Sodium Succinate (Solu-Medrol -) 40 mg IVPB Q8H-IV [facility] Last Admin: 12/22/16 12:20 Dose: 40 mg Metolazone (Zaroxolyn -) 2.5 mg PO DAILY@0530 [facility] Last Admin: 12/22/16 05:52 Dose: 2.5 mg Mineral Oil (Fleet Mineral Oil Rectal Enema -) 133 ml [place] DAILY PRN PRN Reason: CONSTIPATION Nystatin (Nystatin Oral Suspension -) 500,000 units PO Q6HPO [facility] Last Admin: 12/22/16 12:55 Dose: 500,000 units Polyethylene Glycol (Miralax (For Daily Use) -) 17 gm PO BID [facility] Potassium Chloride (K-Dur -) 40 meq PO BID [facility] Stop: 12/23/16 15:59 Last Admin: 12/22/16 11:32 Dose: 40 meq Ranitidine HCl (Zantac -) 75 mg PO DAILY [facility] Last Admin: 12/22/16 11:33 Dose: 75 mg ASSESSMENT/PLAN: 76 yr old woman with emphysema (oxygen dependent), diastolic CHF, HTN presents with worsening dyspnea found to be hypokalemic admitted for acute diastolic CHF. - pre/post testing pending to evaluate oxygen needs #SOb secondary to acute CHF exacerbation - lasix 20mg IVPB BID - given hyponatremia and hypokalemia, will stop lasix IV, switch to 20mg po daily. clinically improved; lungs without crackles, no LE edema. - I&O, daily weights - monitor electrolytes - serum osm 268, low #Hyponatremia, serum osm 268 - urine creatine, urea and sodium, uric acid for further evaluation #Hypokalemia, likely from diuretic use - replete po 40 meq po, unable to tolerate soln or IV #Arrhythmia - cardizem 60mg po BID - eliquis 5mg po bid #Thrush, likely from inhalers - nystatin swich&swallow q6hr #Emphysema - oxygen dependent - continous oxygen 3lpm, maintain oxygen sat >90% - solu-medrol 40mg IVPb q8hr --start 12/20 - symbicort, mucinex,duonebs,ventolin, tudorza - Dr. Banks consulted #HTN - metalazone #GERD - ranitidine, milk of magnesia #Anxiety - xanax 0.25 TID #DVT - on eliquis #Diet: low sodium Code: DNR/DNI Visit type - Emergency Visit Emergency Visit: No - New Patient This patient is new to me today: No - Critical Care Critical Care patient: No
--- NOTE | 2016-12-22 16:10 | PN ---
Teaching Attending Note Name of Resident: Cindy Jeter ATTENDING PHYSICIAN STATEMENT I saw and evaluated the patient. I reviewed the resident's note and discussed the case with the resident. I agree with the resident's findings and plan as documented. SUBJECTIVE: Appears anxious and depressed. C/o SOB, throat tightness and deconditioning. OBJECTIVE: Vital Signs - 24 hr 12/21/16 12/21/16 12/21/16 16:15 21:00 21:30 Temperature 98.7 F 97.3 F L Pulse Rate 81 72 Respiratory 20 20 20 Rate Blood Pressure 151/58 133/65 O2 Sat by Pulse 97 Oximetry (%) 12/21/16 12/22/16 12/22/16 22:35 07:39 09:30 Temperature 98.3 F 98.0 F Pulse Rate 72 83 Respiratory 20 20 Rate Blood Pressure 123/52 138/74 O2 Sat by Pulse 95 Oximetry (%) 12/22/16 15:37 Temperature 98.1 F Pulse Rate 96 H Respiratory 18 Rate Blood Pressure 140/70 O2 Sat by Pulse Oximetry (%) ASSESSMENT AND PLAN: # Acute on chronic respiratory failure, multifactorial , COPD exacerbation and diastolic CHF. -c/o tapering steroids, now on 40 Q 8hr -c/w nebs - O2 walk test -Oxygen #Acute Hyponatremia- hypovolemic - change lasix to PO -monitor BMP # Acute Hypokalemia -supplement K -decrease Lasix # Hx of Afib rate is controlled on Eliquis and cardizem to continue DVT PX: Eliquis
[2016-12-22] MEDS: DOCUSATE SODIUM 100 MG CAPSULE (FP) PO SCH (22:26)
[2016-12-23] MEDS: NYSTATIN 500,000 UNITS/5 ML SUSPENSION PO SCH ×3 (00:39→11:41)
[2016-12-23] MEDS: methylPREDNISolone NA SUCC 40 MG/1 ML VIAL IVPB SCH ×2 (02:04→09:12)
[2016-12-23] MEDS ORDERED: PT OWN MED DRAWER 7, Y5N ONE ×3 (06:21→16:43)
[2016-12-23] MEDS: METOLAZONE 2.5 MG TABLET (FP) PO SCH (06:23)
[2016-12-23] MEDS: ALPRAZolam 0.25 MG TABLET PO PRN ×3 (06:23→21:31)
[2016-12-23] MEDS: IPRATROPIUM BR 0.02% 0.5 MG/2.5 ML VIAL.NEB. NEB SCH ×5 (06:55→23:25)
[2016-12-23] MEDS: ALBUTEROL SO4 0.042% IH SOL 1.25 MG/3 ML VIAL.NEB NEB SCH ×5 (06:56→23:26)
[2016-12-23 08:27] LABS: BASOPHIL 0.1 % (0-2.0); MCH 25.9 pg (25.7-33.7); MCHC 31.4 g/dl (32.0-36.0); MEAN CELL VOLUME 82.5 fl (80-96); MEAN PLT VOLUME 8.4 fl (7.5-11.1); NEUTROPHILS 92.1 % (42.8-82.8); PLATELET COUNT 269 K/MM3 (134-434); WHITE BLOOD COUNT 19.2 K/mm3 (4.0-10.0)
[2016-12-23 08:57] LABS: CALCIUM 8.7 mg/dL (8.5-10.1); CREATININE 0.6 mg/dL (0.55-1.02); URIC ACID 7.9 mg/dL (2.6-7.2)
[2016-12-23] MEDS: FUROSEMIDE 20 MG TABLET (FP) PO SCH (09:11)
[2016-12-23] MEDS: guaiFENesin 600 MG TABLET.ER (FP) PO SCH ×2 (09:11→21:21)
[2016-12-23] MEDS: POLYETHYLENE GLYCOL 3350 119 GM BTL PO SCH ×2 (09:11→21:22)
[2016-12-23] MEDS: APIXABAN 5 MG TABLET PO SCH (09:11)
[2016-12-23] MEDS: dilTIAZem HCL 60 MG TABLET (FP) PO SCH ×2 (09:11→21:21)
[2016-12-23] MEDS: POTASSIUM CHLORIDE TABS 20 MEQ TABLET.ER (FP) PO SCH (09:11)
[2016-12-23] MEDS: MAGNESIUM HYDROX 2400MG/30ML ORAL SUSPENSION 30 ML CUP PO SCH (09:11)
[2016-12-23] MEDS: RANITIDINE HCL 150 MG TABLET (FP) PO SCH (09:12)
[2016-12-23] MEDS: BUDESONIDE/FORMETEROL FUMARATE 160/4.5 mcg INHALER IH SCH ×2 (09:12→21:26)
--- NOTE | 2016-12-23 09:57 | PN ---
Progress Note (short form) - Note Progress Note: PULMONARY Breathing slowly improving. States she had a bad reaction to steroids yesterday with choking sensation. +nonproductive cough but not much wheezing. No fevers or chills. Last Vital Signs Temp Pulse Resp BP Pulse Ox 98.6 F 74 20 129/68 93 L 12/23/16 08:56 12/23/16 08:56 12/23/16 08:56 12/23/16 08:56 12/22/16 09:00 Gen: less tachypneic Heart: RRR Lung: distant breath sounds, no wheezes Abd: soft, nontender Ext: no edema CBC, BMP 12/23/16 07:00 12/23/16 07:00 Active Medications Acetaminophen (Tylenol -) 650 mg PO Q6H PRN Albuterol Sulfate (Ventolin Hfa Inhaler -) 2 puff IH Q4H PRN Albuterol Sulfate (Ventolin 0.042trength) -) 1 amp NEB QIDR [facility] Last Admin: 12/23/16 06:56 Dose: 1 amp Alprazolam (Xanax -) 0.25 mg PO TID PRN PRN Reason: ANXIETY Last Admin: 12/23/16 06:23 Dose: 0.25 mg Apixaban (Eliquis -) 5 mg PO BID [facility] Last Admin: 12/23/16 09:11 Dose: 5 mg Budesonide/Formoterol Fumarate (Symbicort 160/4.5mcg -) 2 puff IH BID [facility] Last Admin: 12/23/16 09:12 Dose: 2 puff Diltiazem HCl (Cardizem -) 60 mg PO BID [facility] Last Admin: 12/23/16 09:11 Dose: 60 mg Docusate Sodium (Colace -) 100 mg PO HS [facility] Last Admin: 12/22/16 22:26 Dose: 100 mg Furosemide (Lasix -) 20 mg PO DAILY [facility] Last Admin: 12/23/16 09:11 Dose: 20 mg Guaifenesin (Mucinex -) 600 mg PO BID [facility] Last Admin: 12/23/16 09:11 Dose: 600 mg Ipratropium [place] (Atrovent 0.02% Nebulizer -) 1 amp NEB QIDR [facility] Last Admin: 12/23/16 06:55 Dose: 1 amp Magnesium Hydroxide (Milk Of Magnesia -) 30 ml PO DAILY [facility] Last Admin: 12/23/16 09:11 Dose: 30 ml Methylprednisolone Sodium Succinate (Solu-Medrol -) 40 mg IVPB Q8H-IV [facility] Last Admin: 12/23/16 09:12 Dose: 40 mg Metolazone (Zaroxolyn -) 2.5 mg PO DAILY@0530 [facility] Last Admin: 12/23/16 06:23 Dose: 2.5 mg Mineral Oil (Fleet Mineral Oil Rectal Enema -) 133 ml [place] DAILY PRN PRN Reason: CONSTIPATION Nystatin (Nystatin Oral Suspension -) 500,000 units PO Q6HPO [facility] Last Admin: 12/23/16 06:23 Dose: 500,000 units Polyethylene Glycol (Miralax (For Daily Use) -) 17 gm PO BID [facility] Last Admin: 12/23/16 09:11 Dose: 17 gm Potassium Chloride (K-Dur -) 40 meq PO BID [facility] Stop: 12/23/16 15:59 Last Admin: 12/23/16 09:11 Dose: 40 meq Ranitidine HCl (Zantac -) 75 mg PO DAILY [facility] Last Admin: 12/23/16 09:12 Dose: 75 mg A/P Acute COPD Exacerbation Acute on LV Diastolic Heart Failure improving Paroxsmal Atrial Fibrillation Hyponatremia - will decrease medrol to 30mg q12h, if continues to improve can change to PO in AM - inhaled bronchodilators standing and PRN - O2 to keep SpO2 >90% - lasix, zaroxolyn as needed - continue anticoagulation
[2016-12-23 14:32] LABS: URINE CREATININE 73.8 mg/dL
--- NOTE | 2016-12-23 14:46 | PN ---
Physical Exam: SUBJECTIVE: Patient seen and examined c/o discomfort from swallowing. feels hopeless and like giving up. does not want to get up because of the effort it requires, feels that nothing will help her. OBJECTIVE: Vital Signs Period Temp Pulse Resp BP Sys/Paige Pulse Ox Last 24 Hr 98 F-98.6 F 66-96 18-20 128-143/57-70 95 GENERAL: thin elderly woman. The patient is awake, alert, and fully oriented, in no acute distress. HEAD: Normal with no signs of trauma. EYES: PERRL, extraocular movements intact, sclera anicteric, conjunctiva clear. No ptosis. ENT: Ears normal, nares patent, oropharynx clear without exudates, moist mucous membranes. NECK: Trachea midline, full range of motion, supple. LUNGS: Breath sounds equal, clear to auscultation bilaterally, no wheezes, no crackles, no accessory muscle use. HEART: Regular rate and rhythm, S1, S2 without murmur, rub or gallop. ABDOMEN: Soft, nontender, nondistended, normoactive bowel sounds, no guarding, no rebound, no hepatosplenomegaly, no masses. EXTREMITIES: 2+ pulses, warm, well-perfused, no edema. erythema in b/l feet upto toes. Laboratory Results - last 24 hr 12/23/16 12/23/16 12/23/16 07:00 07:00 10:00 WBC 19.2 H RBC 4.99 Hgb 12.9 Hct 41.1 MCV 82.5 MCHC 31.4 L RDW 13.0 Plt Count 269 MPV 8.4 Neutrophils % 92.1 H Lymphocytes % 2.6 L Monocytes % 5.2 Eosinophils % 0.0 Basophils % 0.1 Sodium 128 L Potassium 3.8 D Chloride 68 L Carbon Dioxide 59 H Anion Gap 1 L BUN 38 H D Creatinine 0.6 Random Glucose 121 H Uric Acid 7.9 H Calcium 8.7 Urine Creatinine 73.8 Active Medications Generic Name Dose Route Start Last Admin Trade Name Freq PRN Reason Stop Dose Admin Acetaminophen 650 mg 12/19/16 16:45 Tylenol - PO Q6H PRN Albuterol Sulfate 2 puff 12/19/16 18:00 Ventolin Hfa Inhaler - IH Q4H PRN Albuterol Sulfate 1 amp 12/21/16 12:00 12/23/16 11:23 Ventolin 0.042trength) - NEB 1 amp QIDR CHRIS Administration Alprazolam 0.25 mg 12/19/16 19:56 12/23/16 13:32 Xanax - PO 0.25 mg TID PRN Administration ANXIETY Apixaban 5 mg 12/19/16 22:00 12/23/16 09:11 Eliquis - PO 5 mg BID CHRIS Administration Budesonide/Formoterol Fumarate 2 puff 12/19/16 22:00 12/23/16 09:12 Symbicort 160/4.5mcg - IH 2 puff BID CHRIS Administration Diltiazem HCl 60 mg 12/19/16 22:00 12/23/16 09:11 Cardizem - PO 60 mg BID CHRIS Administration Docusate Sodium 100 mg 12/19/16 22:00 12/22/16 22:26 Colace - PO 100 mg HS CHRIS Administration Fluconazole 50 mg 12/23/16 14:45 Diflucan - PO DAILY CHRIS Furosemide 20 mg 12/23/16 10:00 12/23/16 09:11 Lasix - PO 20 mg DAILY CHRIS Administration Guaifenesin 600 mg 12/19/16 22:00 12/23/16 09:11 Mucinex - PO 600 mg BID CHRIS Administration Ipratropium [place] 1 amp 12/21/16 12:00 12/23/16 11:23 Atrovent 0.02% Nebulizer - NEB 1 amp QIDR CHRIS Administration Magnesium Hydroxide 30 ml 12/20/16 10:00 12/23/16 09:11 Milk Of Magnesia - PO 30 ml DAILY CHRIS Administration Methylprednisolone Sodium Succinate 30 mg 12/24/16 10:00 Solu-Medrol - IVPB Q12H CHRIS Metolazone 2.5 mg 12/20/16 05:30 12/23/16 06:23 Zaroxolyn - PO 2.5 mg DAILY@0530 CHRIS Administration Mineral Oil 133 ml 12/21/16 15:15 Fleet Mineral Oil Rectal Enema - [place] DAILY PRN CONSTIPATION Nystatin 500,000 units 12/20/16 06:00 12/23/16 11:41 Nystatin Oral Suspension - PO 500,000 units Q6HPO CHRIS Administration Polyethylene Glycol 17 gm 12/22/16 22:00 12/23/16 09:11 Miralax (For Daily Use) - PO 17 gm BID CHRIS Administration Potassium Chloride 40 meq 12/21/16 16:00 12/23/16 09:11 K-Dur - PO 12/23/16 15:59 40 meq BID CHRIS Administration Prednisone 30 mg 12/23/16 14:45 Deltasone - PO Q12H CHRIS Ranitidine HCl 75 mg 12/20/16 10:00 12/23/16 09:12 Zantac - PO 75 mg DAILY CHRIS Administration ASSESSMENT/PLAN: 76 yr old woman with emphysema (oxygen dependent), diastolic CHF, HTN presents with worsening dyspnea found to be hypokalemic admitted for acute diastolic CHF. - pre/post testing pending to evaluate oxygen needs #SOb secondary to acute CHF exacerbation - lasix 20mg IVPB BID - given hyponatremia and hypokalemia, will stop lasix IV, switch to 20mg po daily. clinically improved; lungs without crackles, no LE edema. - I&O, daily weights - monitor electrolytes #Difficulty swallow- likely esophageal thrush - diflucan 50mg po #Hyponatremia, serum osm low - urine creatine, urea and sodium, uric acid for further evaluation #Hypokalemia, likely from diuretic use - replete po 40 meq, unable to tolerate soln or IV #Arrhythmia - cardizem 60mg po BID - eliquis 2.5 po bid (adjusted dose for weight <60kg) #Emphysema - oxygen dependent - continous oxygen 3lpm, maintain oxygen sat >90% - solu-medrol 30mg po q 12hr --start 12/20 - symbicort, mucinex,duonebs,ventolin, tudorza - Dr. Banks consulted #HTN - metalazone #GERD - milk of magnesia #Anxiety - xanax 0.25 TID #Depressed mood - will need to follow closely, palliative involved - d/c'ed ranitidine as it may cause depressed mood in geriatric patients, will restart if she complains of GERD - given hyponatremia - cannot start SSRI d/t risk of worsening hyponatremia #Severe malnutrition - BMI of 13.9 - poor po intake, ensure TID - will discuss marinol if intake with ensure continues to be poor #DVT - on eliquis #Diet: low sodium Code: DNR/DNI Visit type - Emergency Visit Emergency Visit: No - New Patient This patient is new to me today: No - Critical Care Critical Care patient: No
--- NOTE | 2016-12-23 16:09 | PN ---
Teaching Attending Note Name of Resident: Cindy Jeter ATTENDING PHYSICIAN STATEMENT I saw and evaluated the patient. I reviewed the resident's note and discussed the case with the resident. I agree with the resident's findings and plan as documented. SUBJECTIVE:feels better today OBJECTIVE: Vital Signs Temp 98.5 F 12/23/16 15:28 Pulse 93 H 12/23/16 15:28 Resp 18 12/23/16 15:28 BP 133/66 12/23/16 15:28 Pulse Ox 95 12/23/16 09:00 Intake & Output 12/22/16 12/23/16 12/23/16 23:59 11:59 23:59 Intake Total 450 400 Output Total 300 300 Balance 150 100 Weight 37.79 kg Intake: IVPB 50 Oral 400 400 Output: Urine 300 300 Void 300 300 Other: Voiding Method Toilet Toilet # Unmeasured Voids Void 3 1 Bowel Movement No Yes # Bowel Movements 1 Weight Measurement Method Built in [facility] GENERAL: thin elderly woman. The patient is awake, alert, and fully oriented, in no acute distress. HEAD: Normal with no signs of trauma. EYES: PERRL, extraocular movements intact, sclera anicteric, conjunctiva clear. No ptosis. ENT: Ears normal, nares patent, oropharynx clear without exudates, moist mucous membranes. NECK: Trachea midline, full range of motion, supple. LUNGS: Breath sounds equal, clear to auscultation bilaterally, no wheezes, no crackles, no accessory muscle use. HEART: Regular rate and rhythm, S1, S2 without murmur, rub or gallop. ABDOMEN: Soft, nontender, nondistended, normoactive bowel sounds, no guarding, no rebound, no hepatosplenomegaly, no masses. EXTREMITIES: 2+ pulses, warm, well-perfused, no edema. erythema in b/l feet upto toes CBC, BMP 12/23/16 07:00 12/23/16 07:00 ASSESSMENT AND PLAN: # Acute on chronic respiratory failure, multifactorial , COPD exacerbation and diastolic CHF. -c/o tapering steroids and change to po -c/w nebs -Oxygen #Acute Hyponatremia- hypovolemic - lasix switched to PO - monitor Na # Hypokalemia -supplement K -decrease Lasix # Hx of Afib rate is controlled on Eliquis and cardizem to continue D/C planning
--- NOTE | 2016-12-23 16:41 | PN ---
Progress Note, Physician History of Present Illness: Dyspnea slowly improving, nonproductive cough. - Current Medication List Current Medications: Active Medications Acetaminophen (Tylenol -) 650 mg PO Q6H PRN Albuterol Sulfate (Ventolin Hfa Inhaler -) 2 puff IH Q4H PRN Albuterol Sulfate (Ventolin 0.042trength) -) 1 amp NEB QIDR [facility] Last Admin: 12/23/16 11:23 Dose: 1 amp Alprazolam (Xanax -) 0.25 mg PO TID PRN PRN Reason: ANXIETY Last Admin: 12/23/16 13:32 Dose: 0.25 mg Apixaban (Eliquis -) 2.5 mg PO BID [facility] Budesonide/Formoterol Fumarate (Symbicort 160/4.5mcg -) 2 puff IH BID [facility] Last Admin: 12/23/16 09:12 Dose: 2 puff Diltiazem HCl (Cardizem -) 60 mg PO BID [facility] Last Admin: 12/23/16 09:11 Dose: 60 mg Docusate Sodium (Colace -) 100 mg PO HS [facility] Last Admin: 12/22/16 22:26 Dose: 100 mg Fluconazole (Diflucan -) 50 mg PO DAILY [facility] Furosemide (Lasix -) 20 mg PO DAILY [facility] Last Admin: 12/23/16 09:11 Dose: 20 mg Guaifenesin (Mucinex -) 600 mg PO BID [facility] Last Admin: 12/23/16 09:11 Dose: 600 mg Ipratropium [place] (Atrovent 0.02% Nebulizer -) 1 amp [facility] QIDR [facility] Last Admin: 12/23/16 11:23 Dose: 1 amp Magnesium Hydroxide (Milk Of Magnesia -) 30 ml PO DAILY [facility] Last Admin: 12/23/16 09:11 Dose: 30 ml Metolazone (Zaroxolyn -) 2.5 mg PO DAILY@0530 [facility] Last Admin: 12/23/16 06:23 Dose: 2.5 mg Mineral Oil (Fleet Mineral Oil Rectal Enema -) 133 ml [place] DAILY PRN PRN Reason: CONSTIPATION Polyethylene Glycol (Miralax (For Daily Use) -) 17 gm PO BID [facility] Last Admin: 12/23/16 09:11 Dose: 17 gm Prednisone (Deltasone -) 30 mg PO BID [facility] - Objective Vital Signs: Vital Signs Temperature 98.5 F 12/23/16 15:28 Pulse Rate 93 H 12/23/16 15:28 Respiratory Rate 18 12/23/16 15:28 Blood Pressure 133/66 12/23/16 15:28 O2 Sat by Pulse Oximetry (%) 95 12/23/16 09:00 Constitutional: Yes: No Distress, Calm, Thin Neck: Yes: Supple Cardiovascular: Yes: Regular Rate and Rhythm Respiratory: Yes: Regular, Diminished, On Nasal O2 Gastrointestinal: Yes: Normal Bowel Sounds, Soft Edema: No Labs: CBC, BMP 12/23/16 07:00 12/23/16 07:00 INR, PTT INR 1.55 (0.82-1.09) H 12/19/16 10:24 Problem List - Problems (1) Acute exacerbation of chronic bronchitis Code(s): J20.9 - ACUTE BRONCHITIS, UNSPECIFIED J42 - UNSPECIFIED CHRONIC BRONCHITIS (2) Acute on chronic diastolic congestive heart failure Code(s): I50.33 - ACUTE ON CHRONIC DIASTOLIC (CONGESTIVE) HEART FAILURE (3) Atrial fibrillation Code(s): I48.91 - UNSPECIFIED ATRIAL FIBRILLATION Qualifiers: Atrial fibrillation type: paroxysmal Qualified Code(s): I48.0 - Paroxysmal atrial fibrillation (4) COPD (chronic obstructive pulmonary disease) Code(s): J44.9 - CHRONIC OBSTRUCTIVE PULMONARY DISEASE, UNSPECIFIED Qualifiers : COPD type: unspecified COPD Qualified Code(s): J44.9 - Chronic obstructive pulmonary disease, unspecified (5) Dyspnea Code(s): R06.00 - DYSPNEA, UNSPECIFIED Qualifiers: Dyspnea type: dyspnea on exertion Qualified Code(s): R06.09 - Other forms of dyspnea (6) Oxygen dependent Code(s): Z99.81 - DEPENDENCE ON SUPPLEMENTAL OXYGEN Assessment/Plan 1. Acute on chronic LV diastolic failure resolving 2. Paroxysmal atrial fibrillation now in sinus rhythm 3. COPD exacerbation resolving 4. Hyponatremia PLAN: 1. Continue Cardizem PO, Lasix 20 qd 2. Continue Eliquis 2.5 bid 3. Bronchodilator, oral steroid taper and O2 to keep SpO2 >90% 4. D/c planning
[2016-12-23] MEDS: FLUCONAZOLE 50 MG TABLET PO SCH (16:45)
[2016-12-23] MEDS: predniSONE 10 MG TABLET (UD) PO SCH (21:21)
[2016-12-23] MEDS: DOCUSATE SODIUM 100 MG CAPSULE (FP) PO SCH (21:24)
[2016-12-24] MEDS: METOLAZONE 2.5 MG TABLET (FP) PO SCH (05:38)
[2016-12-24] MEDS: ALBUTEROL SO4 0.042% IH SOL 1.25 MG/3 ML VIAL.NEB NEB SCH ×3 (07:25→17:28)
[2016-12-24] MEDS: IPRATROPIUM BR 0.02% 0.5 MG/2.5 ML VIAL.NEB. NEB SCH ×3 (07:25→17:26)
[2016-12-24 08:15] LABS: CALCIUM 8.7 mg/dL (8.5-10.1); CREATININE 0.5 mg/dL (0.55-1.02)
[2016-12-24] MEDS ORDERED: POTASSIUM CHLORIDE TABS 20 MEQ TABLET.ER (FP) PO ONE (09:10)
[2016-12-24 09:18] LABS: URIC ACID 7.5 mg/dL (2.6-7.2)
[2016-12-24] MEDS ORDERED: PT OWN MED DRAWER 7, Y5N ONE ×4 (09:25→21:28)
[2016-12-24] MEDS: predniSONE 10 MG TABLET (UD) PO SCH ×2 (09:31→21:26)
[2016-12-24] MEDS: dilTIAZem HCL 60 MG TABLET (FP) PO SCH ×2 (09:31→21:40)
[2016-12-24] MEDS: FLUCONAZOLE 50 MG TABLET PO SCH (09:32)
[2016-12-24] MEDS: FUROSEMIDE 20 MG TABLET (FP) PO SCH (09:32)
[2016-12-24] MEDS: APIXABAN 2.5 MG TABLET PO SCH ×2 (09:32→21:29)
[2016-12-24] MEDS: POLYETHYLENE GLYCOL 3350 119 GM BTL PO SCH ×2 (09:33→21:36)
[2016-12-24] MEDS: guaiFENesin 600 MG TABLET.ER (FP) PO SCH ×3 (09:33→21:38)
[2016-12-24] MEDS: MAGNESIUM HYDROX 2400MG/30ML ORAL SUSPENSION 30 ML CUP PO SCH (09:33)
[2016-12-24] MEDS: BUDESONIDE/FORMETEROL FUMARATE 160/4.5 mcg INHALER IH SCH ×2 (09:33→21:41)
[2016-12-24] MEDS: ALPRAZolam 0.25 MG TABLET PO PRN ×3 (09:40→21:26)
[2016-12-24] MEDS ORDERED: FLUoxetine HCL 10 MG TABLET PO SCH (10:00)
[2016-12-24] MEDS ORDERED: methylPREDNISolone NA SUCC 40 MG/1 ML VIAL IVPB SCH (10:00)
[2016-12-24] MEDS ORDERED: KCL 10 MEQ IVPB 100 ML IVPB SCH (12:00)
[2016-12-24] MEDS ORDERED: POTASSIUM CHLORIDE 40 MEQ/30 ML UNIT DOSE CUP PO ONE (12:45)
--- NOTE | 2016-12-24 14:06 | PN ---
Physical Exam: SUBJECTIVE: Patient seen and examined feels hopeless. feels that she is ready for hospice, wants to transferred to [facility]. does not want to put in the effort to work with PT. was oob and felt it was too much for her. OBJECTIVE: Vital Signs Period Temp Pulse Resp BP Sys/Paige Pulse Ox Last 24 Hr 97.7 F-98.5 F 70-101 18-20 117-146/59-74 3-95 GENERAL: thin elderly woman. The patient is awake, alert, and fully oriented, in no acute distress. EYES: PERRL, extraocular movements intact LUNGS: Breath sounds equal, clear to auscultation bilaterally, no wheezes, no crackles, no accessory muscle use. nasal cannula in place HEART: Regular rate and rhythm, S1, S2 without murmur, rub or gallop. ABDOMEN: Soft, nontender, nondistended, normoactive bowel sounds EXTREMITIES: 2+ pulses, warm, well-perfused, no edema. Laboratory Results - last 24 hr 12/22/16 12/23/16 12/23/16 06:20 10:00 10:00 Sodium Potassium Chloride Carbon Dioxide Anion Gap BUN Creatinine Random Glucose Uric Acid 7.5 H Calcium Ur Random Urea Nitrogn 1325 Urine Creatinine 73.8 12/24/16 06:30 Sodium 127 L Potassium 2.9 L* D Chloride 66 L Carbon Dioxide 49 H Anion Gap 12 BUN 36 H Creatinine 0.5 L Random Glucose 90 D Uric Acid Calcium 8.7 Ur Random Urea Nitrogn Urine Creatinine Active Medications Generic Name Dose Route Start Last Admin Trade Name Freq PRN Reason Stop Dose Admin Acetaminophen 650 mg 12/19/16 16:45 Tylenol - PO Q6H PRN Albuterol Sulfate 2 puff 12/19/16 18:00 Ventolin Hfa Inhaler - IH Q4H PRN Albuterol Sulfate 1 amp 12/21/16 12:00 12/24/16 11:10 Ventolin 0.042trength) - NEB 1 amp QIDR CHRIS Administration Alprazolam 0.25 mg 12/19/16 19:56 12/24/16 09:40 Xanax - PO 0.25 mg TID PRN Administration ANXIETY Apixaban 2.5 mg 12/24/16 10:00 12/24/16 09:32 Eliquis - PO 2.5 mg BID CHRIS Administration Budesonide/Formoterol Fumarate 2 puff 12/19/16 22:00 12/24/16 09:33 Symbicort 160/4.5mcg - IH 2 puff BID CHRIS Administration Diltiazem HCl 60 mg 12/19/16 22:00 12/24/16 09:31 Cardizem - PO 60 mg BID CHRIS Administration Docusate Sodium 100 mg 12/19/16 22:00 12/23/16 21:24 Colace - PO Not Given HS CHRIS Fluconazole 50 mg 12/23/16 16:00 12/24/16 09:32 Diflucan - PO 50 mg DAILY CHRIS Administration Furosemide 20 mg 12/23/16 10:00 12/24/16 09:32 Lasix - PO 20 mg DAILY CHRIS Administration Guaifenesin 600 mg 12/19/16 22:00 12/24/16 09:34 Mucinex - PO Not Given BID CHRIS Ipratropium [place] 1 amp 12/21/16 12:00 12/24/16 11:10 Atrovent 0.02% Nebulizer - NEB 1 amp QIDR CHRIS Administration Magnesium Hydroxide 30 ml 12/20/16 10:00 12/24/16 09:33 Milk Of Magnesia - PO Not Given DAILY CHRIS Metolazone 2.5 mg 12/20/16 05:30 12/24/16 05:38 Zaroxolyn - PO 2.5 mg DAILY@0530 CHRIS Administration Mineral Oil 133 ml 12/21/16 15:15 Fleet Mineral Oil Rectal Enema - [place] DAILY PRN CONSTIPATION Polyethylene Glycol 17 gm 12/22/16 22:00 12/24/16 09:33 Miralax (For Daily Use) - PO Not Given BID [facility] Prednisone 30 mg 12/23/16 22:00 12/24/16 09:31 Deltasone - PO 30 mg BID CHRIS Administration ASSESSMENT/PLAN: 76 yr old woman with emphysema (oxygen dependent), diastolic CHF, HTN presents with worsening dyspnea found to be hypokalemic admitted for acute diastolic CHF. - pre/post testing pending to evaluate oxygen needs - pt has been refusing to work with PT. # hyponatremia- likely due to diuretic use - will given 1L of NS gently, assess in the am for fluid overload - repeat labs in the am #SOb secondary to acute CHF exacerbation - lasix 20mg po daily - no LE edema. - I&O, daily weights - monitor electrolytes #Difficulty swallow- likely esophageal thrush - diflucan 50mg po --started 12/23 #Hypokalemia, likely from diuretic use - replete po 40 meq, unable to tolerate soln or IV #Arrhythmia - cardizem 60mg po BID - eliquis 2.5 po bid (adjusted dose for weight <60kg) #Emphysema - oxygen dependent - continous oxygen 3lpm, maintain oxygen sat >90% - solu-medrol 30mg po bid --start 12/20 - symbicort, mucinex,duonebs,ventolin, tudorza - Dr. Banks consulted #HTN - metalazone #GERD - milk of magnesia - ranitidine - pt c/o abdominal discomfort #Anxiety - xanax 0.25 TID #Depressed mood - will need to follow closely, palliative involved - given hyponatremia - cannot start SSRI d/t risk of worsening hyponatremia #Severe malnutrition - pt declined marinol - BMI of 13.9 - poor po intake, ensure TID #DVT - on eliquis #Diet: low sodium Code: DNR/DNI Visit type - Emergency Visit Emergency Visit: No - New Patient This patient is new to me today: No - Critical Care Critical Care patient: No - Discharge Referral Referred to [facility] No
[2016-12-24] MEDS ORDERED: SODIUM CHLORIDE 1,000 ML IV SCH (14:15)
[2016-12-24] MEDS: RANITIDINE HCL 150 MG TABLET (FP) PO SCH (17:58)
--- NOTE | 2016-12-24 18:12 | PN ---
Teaching Attending Note Name of Resident: Cindy Jeter ATTENDING PHYSICIAN STATEMENT I saw and evaluated the patient. I reviewed the resident's note and discussed the case with the resident. I agree with the resident's findings and plan as documented. SUBJECTIVE:sob improved, in better mood OBJECTIVE: Vital Signs Temp 98.1 F 12/24/16 17:18 Pulse 83 12/24/16 17:18 Resp 20 12/24/16 17:18 BP 140/78 12/24/16 17:18 Pulse Ox 95 12/24/16 13:34 Intake & Output 12/23/16 12/24/16 12/24/16 23:59 11:59 23:59 Intake Total 400 600 Output Total 300 1000 Balance 100 -400 Weight 36.514 kg Intake: IV 200 Normal Saline - 1,000 ml 200 @ 50 mls/hr IV ASDIR CHRIS Rx#:[id number] Oral 400 400 Output: Urine 300 1000 Void 300 1000 Other: Voiding Method Toilet Toilet Toilet # Unmeasured Voids Void 1 1 2 Bowel Movement Yes No No # Bowel Movements 1 Weight Measurement Method Built in [facility] GENERAL: thin elderly woman. The patient is awake, alert, and fully oriented, in no acute distress. HEAD: Normal with no signs of trauma. EYES: PERRL, extraocular movements intact, sclera anicteric, conjunctiva clear. No ptosis. ENT: Ears normal, nares patent, oropharynx clear without exudates, moist mucous membranes. NECK: Trachea midline, full range of motion, supple. LUNGS: Breath sounds equal, clear to auscultation bilaterally, no wheezes, no crackles, no accessory muscle use. HEART: Regular rate and rhythm, S1, S2 without murmur, rub or gallop. ABDOMEN: Soft, nontender, nondistended, normoactive bowel sounds, no guarding, no rebound, no hepatosplenomegaly, no masses. EXTREMITIES: 2+ pulses, warm, well-perfused, no edema. erythema in b/l feet upto toes CBC, BMP 12/23/16 07:00 12/24/16 06:30 ASSESSMENT AND PLAN: # Acute on chronic respiratory failure, multifactorial , COPD exacerbation and diastolic CHF. -c/o tapering steroids and change to po -c/w nebs -Oxygen #Hyponatremia and persistent hypokalemia- hypovolemic, possibly induced by diuretics -d/c lasix and metolazone -moitor BMP - trial NS 50cc /hr if electrolyte imbalance is corrected may plan for d/c
[2016-12-24] MEDS: DOCUSATE SODIUM 100 MG CAPSULE (FP) PO SCH (21:36)
[2016-12-24] MEDS ORDERED: APIXABAN 2.5 MG TABLET PO SCH (22:00)
[2016-12-25] MEDS: IPRATROPIUM BR 0.02% 0.5 MG/2.5 ML VIAL.NEB. NEB SCH ×4 (00:15→18:01)
[2016-12-25] MEDS: ALBUTEROL SO4 0.042% IH SOL 1.25 MG/3 ML VIAL.NEB NEB SCH ×4 (00:15→18:01)
--- NOTE | 2016-12-25 08:15 | PN ---
Progress Note (short form) - Note Progress Note: PULMONARY Denies shortness of breath or chest pain. Minimal cough. Last Vital Signs Temp Pulse Resp BP Pulse Ox 98.0 F 77 18 113/48 98 12/24/16 22:00 12/24/16 22:00 12/24/16 22:00 12/24/16 22:00 12/24/16 21:00 Gen: NAD at rest Heart: RRR Lung: distant breath sounds, no wheezes Abd: soft, nontender Ext: no edema CBC, BMP 12/23/16 07:00 12/24/16 06:30 Active Medications Acetaminophen (Tylenol -) 650 mg PO Q6H PRN Albuterol Sulfate (Ventolin Hfa Inhaler -) 2 puff IH Q4H PRN Albuterol Sulfate (Ventolin 0.042trength) -) 1 amp NEB QIDR [facility] Last Admin: 12/25/16 06:52 Dose: 1 amp Alprazolam (Xanax -) 0.25 mg PO TID PRN PRN Reason: ANXIETY Last Admin: 12/24/16 21:26 Dose: 0.25 mg Apixaban (Eliquis -) 2.5 mg PO BID [facility] Last Admin: 12/24/16 21:29 Dose: 2.5 mg Budesonide/Formoterol Fumarate (Symbicort 160/4.5mcg -) 2 puff IH BID [facility] Last Admin: 12/24/16 21:41 Dose: 2 puff Diltiazem HCl (Cardizem -) 60 mg PO BID [facility] Last Admin: 12/24/16 21:40 Dose: 60 mg Docusate Sodium (Colace -) 100 mg PO HS [facility] Last Admin: 12/24/16 21:36 Dose: Not Given Fluconazole (Diflucan -) 50 mg PO DAILY [facility] Last Admin: 12/24/16 09:32 Dose: 50 mg Furosemide (Lasix -) 20 mg PO DAILY [facility] Last Admin: 12/24/16 09:32 Dose: 20 mg Guaifenesin (Mucinex -) 600 mg PO BID [facility] Last Admin: 12/24/16 21:38 Dose: Not Given Sodium Chloride (Normal Saline -) 1,000 mls @ 50 mls/hr IV ASDIR [facility] Stop: 12/25/16 10:14 Last Admin: 12/24/16 15:04 Dose: 50 mls/hr Ipratropium [place] (Atrovent 0.02% Nebulizer -) 1 amp NEB QIDR [facility] Last Admin: 12/25/16 06:51 Dose: 1 amp Magnesium Hydroxide (Milk Of Magnesia -) 30 ml PO DAILY [facility] Last Admin: 12/24/16 09:33 Dose: Not Given Mineral Oil (Fleet Mineral Oil Rectal Enema -) 133 ml [place] DAILY PRN PRN Reason: CONSTIPATION Polyethylene Glycol (Miralax (For Daily Use) -) 17 gm PO BID [facility] Last Admin: 12/24/16 21:36 Dose: Not Given Prednisone (Deltasone -) 30 mg PO BID [facility] Last Admin: 12/24/16 21:26 Dose: 30 mg Ranitidine HCl (Zantac -) 75 mg PO DAILY [facility] Last Admin: 12/24/16 17:58 Dose: 75 mg A/P Acute COPD Exacerbation resolving Acute on LV Diastolic Heart Failure improving Paroxsmal Atrial Fibrillation Hyponatremia Hypokalemia - prednisone taper - will order chemistries - inhaled bronchodilators standing and PRN - O2 to keep SpO2 >90% - lasix, zaroxolyn as needed - continue anticoagulation - rehab/PT
--- NOTE | 2016-12-25 09:25 | PN ---
Physical Exam: SUBJECTIVE: Patient seen and examined. She gets very fatigued with minimal exertion. She denies shortness of breath at rest. OBJECTIVE: Vital Signs Period Temp Pulse Resp BP Sys/Paige Pulse Ox Last 24 Hr 98 F-98.1 F 70-90 18-20 113-140/48-78 95-98 GENERAL: The patient is awake, alert, and fully oriented, in no acute distress. LUNGS: Decreased breath sounds bilaterally. HEART: Irregularly irregular. ABDOMEN: Soft, nontender, nondistended, normoactive bowel sounds. EXTREMITIES: 2+ pulses, warm, well-perfused, no edema. Laboratory Results - last 24 hr 12/22/16 06:20 Uric Acid 7.5 H Active Medications Generic Name Dose Route Start Last Admin Trade Name Freq PRN Reason Stop Dose Admin Acetaminophen 650 mg 12/19/16 16:45 Tylenol - PO Q6H PRN Albuterol Sulfate 2 puff 12/19/16 18:00 Ventolin Hfa Inhaler - IH Q4H PRN Albuterol Sulfate 1 amp 12/21/16 12:00 12/25/16 06:52 Ventolin 0.042trength) - NEB 1 amp QIDR [facility] Administration Alprazolam 0.25 mg 12/19/16 19:56 12/24/16 21:26 Xanax - PO 0.25 mg TID PRN Administration ANXIETY Apixaban 2.5 mg 12/24/16 10:00 12/24/16 21:29 Eliquis - PO 2.5 mg BID [facility] Administration Budesonide/Formoterol Fumarate 2 puff 12/19/16 22:00 12/24/16 21:41 Symbicort 160/4.5mcg - IH 2 puff BID [facility] Administration Diltiazem HCl 60 mg 12/19/16 22:00 12/24/16 21:40 Cardizem - PO 60 mg BID [facility] Administration Docusate Sodium 100 mg 12/19/16 22:00 12/24/16 21:36 Colace - PO Not Given HS [facility] Fluconazole 50 mg 12/23/16 16:00 12/24/16 09:32 Diflucan - PO 50 mg DAILY [facility] Administration Furosemide 20 mg 12/23/16 10:00 12/24/16 09:32 Lasix - PO 20 mg DAILY [facility] Administration Guaifenesin 600 mg 12/19/16 22:00 12/24/16 21:38 Mucinex - PO Not Given BID [facility] Sodium Chloride 1,000 mls @ 50 mls/hr 12/24/16 14:15 12/24/16 15:04 Normal Saline - IV 12/25/16 10:14 50 mls/hr ASDIR [facility] Administration Ipratropium [place] 1 amp 12/21/16 12:00 12/25/16 06:51 Atrovent 0.02% Nebulizer - NEB 1 amp QIDR [facility] Administration Magnesium Hydroxide 30 ml 12/20/16 10:00 12/24/16 09:33 Milk Of Magnesia - PO Not Given DAILY [facility] Mineral Oil 133 ml 12/21/16 15:15 Fleet Mineral Oil Rectal Enema - [place] DAILY PRN CONSTIPATION Polyethylene Glycol 17 gm 12/22/16 22:00 12/24/16 21:36 Miralax (For Daily Use) - PO Not Given BID [facility] Prednisone 30 mg 12/23/16 22:00 12/24/16 21:26 Deltasone - PO 30 mg BID [facility] Administration Ranitidine HCl 75 mg 12/24/16 17:30 12/24/16 17:58 Zantac - PO 75 mg DAILY [facility] Administration ASSESSMENT/PLAN: This is a 76-year-old woman with with a history of chronic hypoxic respiratory failure, COPD, chronic diastolic heart failure, HTN who presented from [facility] with worsening shortness of breath. 1. Acute on chronic hypoxic respiratory failure - Continue oxygen to maintain saturation >90% 2. Acute on chronic diastolic heart failure - Improved - Continue Lasix, Cardizem 3. Acute exacerbation of COPD - Continue Prednisone taper, Symbicort, Mucinex, Albuterol/Atrovent nebs 4. Hyponatremia, hypokalemia secondary to diuresis - Sodium improving - Replete potassium 5. Possible esophageal candidiasis - Continue Diflucan 6. Permanent atrial fibrillation - Continue Cardizem, Eliquis 7. Hypertension - Continue Cardizem, Lasix 8. GERD - Continue Zantac 9. Depression and anxiety - Continue Xanax as needed 10. Severe malnutrition with BMI 13.4 - Continue Ensure 11. Disposition - Plan for hospice either at [facility] or [place] Visit type - Emergency Visit Emergency Visit: Yes ED Registration Date: 12/19/16 Care time: The patient presented to the Emergency Department on the above date and was hospitalized for further evaluation of their emergent condition. - New Patient This patient is new to me today: Yes Date on this admission: 12/25/16 - Critical Care Critical Care patient: No - Discharge Referral Referred to [facility] Med P.C.: No
[2016-12-25 09:26] LABS: BASOPHIL 0.2 % (0-2.0); MCH 26.3 pg (25.7-33.7); MEAN CELL VOLUME 82.3 fl (80-96); MEAN PLT VOLUME 7.8 fl (7.5-11.1); NEUTROPHILS 85.2 % (42.8-82.8); PLATELET COUNT 253 K/MM3 (134-434); RDW 12.6 % (11.6-15.6); WHITE BLOOD COUNT 15.6 K/mm3 (4.0-10.0)
[2016-12-25] MEDS: POLYETHYLENE GLYCOL 3350 119 GM BTL PO SCH ×2 (09:46→21:50)
[2016-12-25] MEDS: MAGNESIUM HYDROX 2400MG/30ML ORAL SUSPENSION 30 ML CUP PO SCH (09:46)
[2016-12-25] MEDS: guaiFENesin 600 MG TABLET.ER (FP) PO SCH ×2 (09:46→21:51)
[2016-12-25 09:49] LABS: CALCIUM 8.9 mg/dL (8.5-10.1); CREATININE 0.5 mg/dL (0.55-1.02); MAGNESIUM 2.7 mg/dL (1.8-2.4); PHOSPHOROUS 3.8 mg/dL (2.5-4.9)
[2016-12-25] MEDS ORDERED: PT OWN MED DRAWER 7, Y5N ONE (09:59)
[2016-12-25] MEDS: RANITIDINE HCL 150 MG TABLET (FP) PO SCH (10:07)
[2016-12-25] MEDS: ALPRAZolam 0.25 MG TABLET PO PRN ×2 (10:07→21:51)
[2016-12-25] MEDS: APIXABAN 2.5 MG TABLET PO SCH ×2 (10:08→21:50)
[2016-12-25] MEDS: predniSONE 10 MG TABLET (UD) PO SCH ×2 (10:08→21:50)
[2016-12-25] MEDS: dilTIAZem HCL 60 MG TABLET (FP) PO SCH ×2 (10:08→21:49)
[2016-12-25] MEDS: FLUCONAZOLE 50 MG TABLET PO SCH (10:09)
[2016-12-25] MEDS: BUDESONIDE/FORMETEROL FUMARATE 160/4.5 mcg INHALER IH SCH ×2 (10:09→21:51)
[2016-12-25] MEDS ORDERED: POTASSIUM CHLORIDE TABS 20 MEQ TABLET.ER (FP) PO ONE (13:00)
--- NOTE | 2016-12-25 21:54 | PN ---
Progress Note, Physician History of Present Illness: Denies chest pain or dyspnea. - Current Medication List Current Medications: Active Medications Acetaminophen (Tylenol -) 650 mg PO Q6H PRN Albuterol Sulfate (Ventolin Hfa Inhaler -) 2 puff IH Q4H PRN Albuterol Sulfate (Ventolin 0.042trength) -) 1 [facility] Last Admin: 12/25/16 18:01 Dose: Not Given Alprazolam (Xanax -) 0.25 mg PO TID PRN PRN Reason: ANXIETY Last Admin: 12/25/16 21:51 Dose: 0.25 mg Apixaban (Eliquis -) 2.5 mg PO BID [facility] Last Admin: 12/25/16 21:50 Dose: 2.5 mg Budesonide/Formoterol Fumarate (Symbicort 160/4.5mcg -) 2 puff IH BID [facility] Last Admin: 12/25/16 21:51 Dose: 2 puff Diltiazem HCl (Cardizem -) 60 mg PO BID [facility] Last Admin: 12/25/16 21:49 Dose: 60 mg Docusate Sodium (Colace -) 100 mg PO HS [facility] Last Admin: 12/24/16 21:36 Dose: Not Given Fluconazole (Diflucan -) 50 mg PO DAILY [facility] Last Admin: 12/25/16 10:09 Dose: 50 mg Furosemide (Lasix -) 20 mg PO DAILY [facility] Last Admin: 12/24/16 09:32 Dose: 20 mg Guaifenesin (Mucinex -) 600 mg PO BID [facility] Last Admin: 12/25/16 21:51 Dose: Not Given Ipratropium [place] (Atrovent 0.02% Nebulizer -) 1 [facility] Last Admin: 12/25/16 18:01 Dose: Not Given Magnesium Hydroxide (Milk Of Magnesia -) 30 ml PO DAILY [facility] Last Admin: 12/25/16 09:46 Dose: Not Given Mineral Oil (Fleet Mineral Oil Rectal Enema -) 133 ml [place] DAILY PRN PRN Reason: CONSTIPATION Polyethylene Glycol (Miralax (For Daily Use) -) 17 gm PO BID [facility] Last Admin: 12/25/16 21:50 Dose: Not Given Prednisone (Deltasone -) 30 mg PO BID [facility] Last Admin: 12/25/16 21:50 Dose: 30 mg Ranitidine HCl (Zantac -) 75 mg PO DAILY [facility] Last Admin: 12/25/16 10:07 Dose: 75 mg - Objective Vital Signs: Vital Signs Temperature 98 F 12/25/16 16:20 Pulse Rate 78 12/25/16 16:20 Respiratory Rate 18 12/25/16 16:20 Blood Pressure 126/51 12/25/16 16:20 O2 Sat by Pulse Oximetry (%) 98 12/25/16 12:07 Constitutional: Yes: No Distress, Calm Neck: Yes: Supple Cardiovascular: Yes: Regular Rate and Rhythm Respiratory: Yes: Regular, Diminished, On Nasal O2 Gastrointestinal: Yes: Normal Bowel Sounds, Soft Edema: No Labs: CBC, BMP 12/25/16 09:05 12/25/16 09:05 INR, PTT INR 1.55 (0.82-1.09) H 12/19/16 10:24 Problem List - Problems (1) Acute exacerbation of chronic bronchitis Code(s): J20.9 - ACUTE BRONCHITIS, UNSPECIFIED J42 - UNSPECIFIED CHRONIC BRONCHITIS (2) Acute on chronic diastolic congestive heart failure Code(s): I50.33 - ACUTE ON CHRONIC DIASTOLIC (CONGESTIVE) HEART FAILURE (3) Atrial fibrillation Code(s): I48.91 - UNSPECIFIED ATRIAL FIBRILLATION Qualifiers: Atrial fibrillation type: paroxysmal Qualified Code(s): I48.0 - Paroxysmal atrial fibrillation (4) COPD (chronic obstructive pulmonary disease) Code(s): J44.9 - CHRONIC OBSTRUCTIVE PULMONARY DISEASE, UNSPECIFIED Qualifiers : COPD type: unspecified COPD Qualified Code(s): J44.9 - Chronic obstructive pulmonary disease, unspecified (5) Dyspnea Code(s): R06.00 - DYSPNEA, UNSPECIFIED Qualifiers: Dyspnea type: dyspnea on exertion Qualified Code(s): R06.09 - Other forms of dyspnea (6) Oxygen dependent Code(s): Z99.81 - DEPENDENCE ON SUPPLEMENTAL OXYGEN Assessment/Plan 1. Acute on chronic LV diastolic failure resolving 2. Paroxysmal atrial fibrillation now in sinus rhythm 3. COPD exacerbation resolving 4. Hyponatremia 5. Hypokalemia PLAN: 1. Continue Cardizem 60 bid, Lasix 20 qd, replete K 2. Continue Eliquis 2.5 bid 3. Bronchodilator, oral steroid taper and O2 to keep SpO2 >90% 4. D/c planning
[2016-12-25] MEDS: DOCUSATE SODIUM 100 MG CAPSULE (FP) PO SCH (22:00)
[2016-12-26] MEDS: IPRATROPIUM BR 0.02% 0.5 MG/2.5 ML VIAL.NEB. NEB SCH ×3 (00:11→11:20)
[2016-12-26] MEDS: ALBUTEROL SO4 0.042% IH SOL 1.25 MG/3 ML VIAL.NEB NEB SCH ×5 (00:12→23:33)
[2016-12-26 08:19] LABS: CALCIUM 8.7 mg/dL (8.5-10.1); CREATININE 0.4 mg/dL (0.55-1.02); MAGNESIUM 2.6 mg/dL (1.8-2.4)
--- NOTE | 2016-12-26 08:45 | PN ---
Physical Exam: SUBJECTIVE: Patient seen and examined. She had an episode of palpitations this morning after walking. OBJECTIVE: Vital Signs Period Temp Pulse Resp BP Sys/Paige Pulse Ox Last 24 Hr 97.9 F-98.2 F 62-78 18-22 124-131/47-58 98-99 GENERAL: The patient is awake, alert, and fully oriented, in no acute distress. LUNGS: Breath sounds decreased bilaterally, few wheezes, no crackles. HEART: Regular rate and rhythm, S1, S2 without murmur, rub or gallop. ABDOMEN: Soft, nontender, nondistended, normoactive bowel sounds, no guarding, no rebound, no hepatosplenomegaly, no masses. EXTREMITIES: 2+ pulses, warm, well-perfused, no edema. Laboratory Results - last 24 hr 12/25/16 12/25/16 12/26/16 09:05 09:05 07:00 WBC 15.6 H RBC 5.15 Hgb 13.6 Hct 42.4 MCV 82.3 MCHC 32.0 RDW 12.6 Plt Count 253 MPV 7.8 Neutrophils % 85.2 H Lymphocytes % 5.6 L D Monocytes % 9.0 Eosinophils % 0.0 Basophils % 0.2 Sodium 129 L 130 L Potassium 3.3 L 3.7 Chloride 69 L 73 L Carbon Dioxide 52 H Anion Gap 8 BUN 33 H 28 H Creatinine 0.5 L 0.4 L Random Glucose 101 87 Calcium 8.9 8.7 Phosphorus 3.8 Magnesium 2.7 H D 2.6 H Active Medications Generic Name Dose Route Start Last Admin Trade Name Freq PRN Reason Stop Dose Admin Acetaminophen 650 mg 12/19/16 16:45 Tylenol - PO Q6H PRN Albuterol Sulfate 2 puff 12/19/16 18:00 Ventolin Hfa Inhaler - IH Q4H PRN Albuterol Sulfate 1 amp 12/21/16 12:00 12/26/16 07:30 Ventolin 0.042trength) - NEB 1 amp QIDR [facility] Administration Alprazolam 0.25 mg 12/19/16 19:56 12/25/16 21:51 Xanax - PO 0.25 mg TID PRN Administration ANXIETY Apixaban 2.5 mg 12/24/16 10:00 12/25/16 21:50 Eliquis - PO 2.5 mg BID [facility] Administration Budesonide/Formoterol Fumarate 2 puff 12/19/16 22:00 12/25/16 21:51 Symbicort 160/4.5mcg - IH 2 puff BID [facility] Administration Diltiazem HCl 60 mg 12/19/16 22:00 12/25/16 21:49 Cardizem - PO 60 mg BID [facility] Administration Docusate Sodium 100 mg 12/19/16 22:00 12/25/16 22:00 Colace - PO Not Given HS [facility] Fluconazole 50 mg 12/23/16 16:00 12/25/16 10:09 Diflucan - PO 50 mg DAILY [facility] Administration Furosemide 20 mg 12/23/16 10:00 12/24/16 09:32 Lasix - PO 20 mg DAILY [facility] Administration Guaifenesin 600 mg 12/19/16 22:00 12/25/16 21:51 Mucinex - PO Not Given BID [facility] Ipratropium [place] 1 amp 12/21/16 12:00 12/26/16 07:30 Atrovent 0.02% Nebulizer - NEB 1 amp QIDR [facility] Administration Magnesium Hydroxide 30 ml 12/20/16 10:00 12/25/16 09:46 Milk Of Magnesia - PO Not Given DAILY [facility] Mineral Oil 133 ml 12/21/16 15:15 Fleet Mineral Oil Rectal Enema - [place] DAILY PRN CONSTIPATION Polyethylene Glycol 17 gm 12/22/16 22:00 12/25/16 21:50 Miralax (For Daily Use) - PO Not Given BID [facility] Prednisone 30 mg 12/23/16 22:00 12/25/16 21:50 Deltasone - PO 30 mg BID [facility] Administration Ranitidine HCl 75 mg 12/24/16 17:30 12/25/16 10:07 Zantac - PO 75 mg DAILY [facility] Administration ASSESSMENT/PLAN: This is a 76-year-old woman with with a history of chronic hypoxic respiratory failure, COPD, chronic diastolic heart failure, HTN who presented from [facility] with worsening shortness of breath. 1. Acute on chronic hypoxic respiratory failure - Continue oxygen to maintain saturation >90% 2. Acute on chronic diastolic heart failure - Improved - Continue Lasix, Cardizem 3. Acute exacerbation of COPD - Continue Prednisone taper, Symbicort, Mucinex, Albuterol/Atrovent nebs 4. Hyponatremia, hypokalemia secondary to diuresis - Sodium improving - Potassium improved 5. Possible esophageal candidiasis - Continue Diflucan 6. Paroxysmal atrial fibrillation - Continue Cardizem, Eliquis 7. Hypertension - Continue Cardizem, Lasix 8. GERD - Continue Zantac 9. Depression and anxiety - Continue Xanax as needed 10. Severe malnutrition with BMI 13.4 - Continue Ensure 11. Disposition - Plan for hospice either at [facility] or [place] Visit type - Emergency Visit Emergency Visit: Yes ED Registration Date: 12/19/16 Care time: The patient presented to the Emergency Department on the above date and was hospitalized for further evaluation of their emergent condition. - New Patient This patient is new to me today: No - Critical Care Critical Care patient: No - Discharge Referral Referred to [facility] Med P.C.: No
--- NOTE | 2016-12-26 09:25 | PN ---
Progress Note (short form) - Note Progress Note: PULMONARY Episode of palpitations this AM after walking from bathroom which spontaneously resolved. Denies shortness of breath or chest pain. Minimal cough. Last Vital Signs Temp Pulse Resp BP Pulse Ox 97.9 F 71 20 131/55 98 12/26/16 07:11 12/26/16 07:11 12/26/16 07:11 12/26/16 07:11 12/25/16 21:00 Gen: NAD at rest Heart: RRR Lung: distant breath sounds, no wheezes Abd: soft, nontender Ext: no edema CBC, BMP 12/25/16 09:05 12/26/16 07:00 Active Medications Acetaminophen (Tylenol -) 650 mg PO Q6H PRN Albuterol Sulfate (Ventolin Hfa Inhaler -) 2 puff IH Q4H PRN Albuterol Sulfate (Ventolin 0.042trength) -) 1 amp NEB QIDR [facility] Last Admin: 12/26/16 07:30 Dose: 1 amp Alprazolam (Xanax -) 0.25 mg PO TID PRN PRN Reason: ANXIETY Last Admin: 12/25/16 21:51 Dose: 0.25 mg Apixaban (Eliquis -) 2.5 mg PO BID [facility] Last Admin: 12/25/16 21:50 Dose: 2.5 mg Budesonide/Formoterol Fumarate (Symbicort 160/4.5mcg -) 2 puff IH BID [facility] Last Admin: 12/25/16 21:51 Dose: 2 puff Diltiazem HCl (Cardizem -) 60 mg PO BID [facility] Last Admin: 12/25/16 21:49 Dose: 60 mg Docusate Sodium (Colace -) 100 mg PO HS [facility] Last Admin: 12/25/16 22:00 Dose: Not Given Fluconazole (Diflucan -) 50 mg PO DAILY [facility] Last Admin: 12/25/16 10:09 Dose: 50 mg Furosemide (Lasix -) 20 mg PO DAILY [facility] Last Admin: 12/24/16 09:32 Dose: 20 mg Guaifenesin (Mucinex -) 600 mg PO BID [facility] Last Admin: 12/25/16 21:51 Dose: Not Given Ipratropium [place] (Atrovent 0.02% Nebulizer -) 1 amp NEB QIDR [facility] Last Admin: 12/26/16 07:30 Dose: 1 amp Magnesium Hydroxide (Milk Of Magnesia -) 30 ml PO DAILY [facility] Last Admin: 12/25/16 09:46 Dose: Not Given Mineral Oil (Fleet Mineral Oil Rectal Enema -) 133 ml [place] DAILY PRN PRN Reason: CONSTIPATION Polyethylene Glycol (Miralax (For Daily Use) -) 17 gm PO BID [facility] Last Admin: 12/25/16 21:50 Dose: Not Given Prednisone (Deltasone -) 30 mg PO BID [facility] Last Admin: 12/25/16 21:50 Dose: 30 mg Ranitidine HCl (Zantac -) 75 mg PO DAILY [facility] Last Admin: 12/25/16 10:07 Dose: 75 mg A/P Acute COPD Exacerbation resolving Acute on LV Diastolic Heart Failure improving Paroxsmal Atrial Fibrillation Hyponatremia Hypokalemia - prednisone taper - will order chemistries - inhaled bronchodilators standing and PRN - O2 to keep SpO2 >90% - lasix, zaroxolyn as needed - continue anticoagulation - rehab/PT - can discharge from pulmonary standpoint
[2016-12-26] MEDS ORDERED: PT OWN MED DRAWER 7, Y5N ONE ×2 (09:38→20:30)
[2016-12-26] MEDS: predniSONE 10 MG TABLET (UD) PO SCH ×2 (09:46→21:23)
[2016-12-26] MEDS: dilTIAZem HCL 60 MG TABLET (FP) PO SCH ×2 (09:46→21:21)
[2016-12-26] MEDS: APIXABAN 2.5 MG TABLET PO SCH ×2 (09:47→21:23)
[2016-12-26] MEDS: FLUCONAZOLE 50 MG TABLET PO SCH (09:48)
[2016-12-26] MEDS: POLYETHYLENE GLYCOL 3350 119 GM BTL PO SCH ×2 (09:48→21:23)
[2016-12-26] MEDS: BUDESONIDE/FORMETEROL FUMARATE 160/4.5 mcg INHALER IH SCH ×2 (09:48→21:31)
[2016-12-26] MEDS: guaiFENesin 600 MG TABLET.ER (FP) PO SCH ×2 (09:48→21:23)
[2016-12-26] MEDS: MAGNESIUM HYDROX 2400MG/30ML ORAL SUSPENSION 30 ML CUP PO SCH (09:48)
[2016-12-26] MEDS: RANITIDINE HCL 150 MG TABLET (FP) PO SCH (09:49)
[2016-12-26] MEDS: ALPRAZolam 0.25 MG TABLET PO PRN (09:54)
[2016-12-26] MEDS: DOCUSATE SODIUM 100 MG CAPSULE (FP) PO SCH (21:23)
[2016-12-27] MEDS: ALBUTEROL SO4 0.042% IH SOL 1.25 MG/3 ML VIAL.NEB NEB SCH ×2 (07:06→11:15)
[2016-12-27 08:53] LABS: CALCIUM 8.3 mg/dL (8.5-10.1); CREATININE 0.3 mg/dL (0.55-1.02)
[2016-12-27] MEDS ORDERED: PT OWN MED DRAWER 7, Y5N ONE ×3 (10:18→10:54)
[2016-12-27] MEDS: predniSONE 10 MG TABLET (UD) PO SCH (10:33)
[2016-12-27] MEDS: FLUCONAZOLE 50 MG TABLET PO SCH (10:33)
[2016-12-27] MEDS: guaiFENesin 600 MG TABLET.ER (FP) PO SCH (10:33)
[2016-12-27] MEDS: RANITIDINE HCL 150 MG TABLET (FP) PO SCH (10:33)
[2016-12-27] MEDS: APIXABAN 2.5 MG TABLET PO SCH (10:33)
[2016-12-27] MEDS: dilTIAZem HCL 60 MG TABLET (FP) PO SCH (10:33)
[2016-12-27] MEDS: POLYETHYLENE GLYCOL 3350 119 GM BTL PO SCH (10:34)
[2016-12-27] MEDS: MAGNESIUM HYDROX 2400MG/30ML ORAL SUSPENSION 30 ML CUP PO SCH (10:34)
[2016-12-27] MEDS: BUDESONIDE/FORMETEROL FUMARATE 160/4.5 mcg INHALER IH SCH (10:34)
[2016-12-27] MEDS: ALPRAZolam 0.25 MG TABLET PO PRN (11:13)
--- NOTE | 2016-12-27 11:19 | PN ---
Progress Note, Physician History of Present Illness: Panic attack earlier in AM. - Current Medication List Current Medications: Active Medications Acetaminophen (Tylenol -) 650 mg PO Q6H PRN Albuterol Sulfate (Ventolin Hfa Inhaler -) 2 puff IH Q4H PRN Last Admin: 12/27/16 10:34 Dose: 2 puff Albuterol Sulfate (Ventolin 0.042trength) -) 1 amp NEB QIDR [facility] Last Admin: 12/27/16 07:06 Dose: Not Given Alprazolam (Xanax -) 0.25 mg PO TID PRN PRN Reason: ANXIETY Last Admin: 12/27/16 11:13 Dose: 0.25 mg Apixaban (Eliquis -) 2.5 mg PO BID [facility] Last Admin: 12/27/16 10:33 Dose: 2.5 mg Budesonide/Formoterol Fumarate (Symbicort 160/4.5mcg -) 2 puff IH BID [facility] Last Admin: 12/27/16 10:34 Dose: 2 puff Diltiazem HCl (Cardizem -) 60 mg PO BID [facility] Last Admin: 12/27/16 10:33 Dose: 60 mg Docusate Sodium (Colace -) 100 mg PO HS [facility] Last Admin: 12/26/16 21:23 Dose: 100 mg Fluconazole (Diflucan -) 50 mg PO DAILY [facility] Last Admin: 12/27/16 10:33 Dose: 50 mg Furosemide (Lasix -) 20 mg PO DAILY [facility] Last Admin: 12/24/16 09:32 Dose: 20 mg Guaifenesin (Mucinex -) 600 mg PO BID [facility] Last Admin: 12/27/16 10:33 Dose: 600 mg Magnesium Hydroxide (Milk Of Magnesia -) 30 ml PO DAILY [facility] Last Admin: 12/27/16 10:34 Dose: 30 ml Mineral Oil (Fleet Mineral Oil Rectal Enema -) 133 ml [place] DAILY PRN PRN Reason: CONSTIPATION Polyethylene Glycol (Miralax (For Daily Use) -) 17 gm PO BID [facility] Last Admin: 12/27/16 10:34 Dose: 17 gm Prednisone (Deltasone -) 30 mg PO BID [facility] Last Admin: 12/27/16 10:33 Dose: 30 mg Ranitidine HCl (Zantac -) 75 mg PO DAILY [facility] Last Admin: 12/27/16 10:33 Dose: 75 mg - Objective Vital Signs: Vital Signs Temperature 96.8 F L 12/27/16 06:00 Pulse Rate 75 12/27/16 06:00 Respiratory Rate 20 12/27/16 06:00 Blood Pressure 116/54 12/27/16 06:00 O2 Sat by Pulse Oximetry (%) 94 L 12/26/16 21:00 Constitutional: Yes: No Distress, Calm, Thin Neck: Yes: Supple Cardiovascular: Yes: Regular Rate and Rhythm Respiratory: Yes: Regular, Diminished, On Nasal O2 Gastrointestinal: Yes: Normal Bowel Sounds, Soft Edema: No Labs: CBC, BMP 12/25/16 09:05 12/27/16 06:30 INR, PTT INR 1.55 (0.82-1.09) H 12/19/16 10:24 Problem List - Problems (1) Acute exacerbation of chronic bronchitis Code(s): J20.9 - ACUTE BRONCHITIS, UNSPECIFIED J42 - UNSPECIFIED CHRONIC BRONCHITIS (2) Acute on chronic diastolic congestive heart failure Code(s): I50.33 - ACUTE ON CHRONIC DIASTOLIC (CONGESTIVE) HEART FAILURE (3) Atrial fibrillation Code(s): I48.91 - UNSPECIFIED ATRIAL FIBRILLATION Qualifiers: Atrial fibrillation type: paroxysmal Qualified Code(s): I48.0 - Paroxysmal atrial fibrillation (4) COPD (chronic obstructive pulmonary disease) Code(s): J44.9 - CHRONIC OBSTRUCTIVE PULMONARY DISEASE, UNSPECIFIED Qualifiers : COPD type: unspecified COPD Qualified Code(s): J44.9 - Chronic obstructive pulmonary disease, unspecified (5) Dyspnea Code(s): R06.00 - DYSPNEA, UNSPECIFIED Qualifiers: Dyspnea type: dyspnea on exertion Qualified Code(s): R06.09 - Other forms of dyspnea (6) Oxygen dependent Code(s): Z99.81 - DEPENDENCE ON SUPPLEMENTAL OXYGEN Assessment/Plan 1. Acute on chronic LV diastolic failure resolving 2. Paroxysmal atrial fibrillation now in sinus rhythm 3. COPD exacerbation resolving 4. Hyponatremia 5. Hypokalemia PLAN: 1. Continue Cardizem 60 bid, Lasix 20 qd, replete K 2. Continue Eliquis 2.5 bid 3. Bronchodilator, oral steroid taper and O2 to keep SpO2 >90% 4. D/c planning to [facility]
--- NOTE | 2016-12-27 11:46 | DS ---
Physical Exam: SUBJECTIVE: Patient seen and examined. improved, stable for transfer to [place]. OBJECTIVE: Vital Signs Period Temp Pulse Resp BP Sys/Paige Pulse Ox Last 24 Hr 96.8 F-98.7 F 75-83 18-23 116-131/50-54 94 PHYSICAL EXAM GENERAL: thin elderly woman. The patient is awake, alert, and fully oriented, in no acute distress. EYES: PERRL, extraocular movements intact LUNGS: Breath sounds equal, clear to auscultation bilaterally, no wheezes, no crackles, no accessory muscle use. nasal cannula in place HEART: Regular rate and rhythm, S1, S2 without murmur, rub or gallop. ABDOMEN: Soft, nontender, nondistended, normoactive bowel sounds EXTREMITIES: 2+ pulses, warm, well-perfused, no edema. LABS Laboratory Results - last 24 hr 12/27/16 06:30 Sodium 130 L Potassium 3.5 Chloride 77 L Carbon Dioxide 48 H Anion Gap 5 L BUN 23 H Creatinine 0.3 L D Random Glucose 77 Calcium 8.3 L HOSPITAL COURSE: Date of Admission:12/19/16 - Date of Discharge: 12/27/16 76 yr old woman with emphysema (oxygen dependent 3lpm), diastolic CHF, HTN presented with worsening dyspnea found to be hypokalemic admitted for acute diastolic CHF. She was treated with lasix 20 IVPB BID then switched to po when she developed hyponatermia and hypokalemia likely from duiretic use. She required a bolus of NS to bring her sodium to normal which had not improved even after decreasing the lasix. She was also started on 40mg soludermol q8hr for 4 days then 30mg po of methylprednisone every 12 hours for 5 days, and she was discharged on a prednisone taper back to her 10mg daily dose. Medications changes: Eliquis changed from 5mg bid to 2.5mg bid, dose adjusted for weight. Minutes to complete discharge: 36 Discharge Summary Reason For Visit: CHF,DYSPNEA Current Active Problems Acute on chronic diastolic congestive heart failure (Acute) Atrial fibrillation (Chronic) COPD (chronic obstructive pulmonary disease) (Chronic) Congestive heart failure (CHF) (Chronic) Dyspnea (Chronic) Oxygen dependent (Chronic) Condition: Improved - Instructions Diet, Activity, Other Instructions: Follow your prednisone taper: Taper 25mg BID for 5 days, 20mg BID for 4 days, 15mg BID for 3 days, 10mg BID for 2 days, then continue 10mg daily resume your home medications except for Metalazone. You are being transferred to [place] for hospice care. Referrals: STAFF,NOT ON [Primary Care Provider] - Disposition: DISCH TO [facility] - Home Medications Comprehensive Discharge Medication List: Ambulatory Orders Acetaminophen [Tylenol -] 1,000 mg PO Q8H PRN 12/19/16 Albuterol Sulfate [Proair Respiclick] 90 mcg IH QID 12/19/16 Alprazolam [Alprazolam ER] 0.25 mg PO TID 12/19/16 Calcium Carbonate [Tums Ultra] 500 mg PO TID 12/19/16 Diltiazem [Cardizem -] 60 mg PO BID 12/19/16 Docusate Sodium [Colace -] 100 mg PO HS 12/19/16 Furosemide [Lasix] 20 mg PO DAILY 12/19/16 Guaifenesin [Mucinex] 600 mg PO BID 12/19/16 Magnesium Hydrox 2400MG/30Ml [Milk of Magnesia -] 30 ml PO DAILY 12/19/16 Prednisone 10 mg PO DAILY 12/19/16 Ranitidine HCl 75 mg PO DAILY 12/19/16 Salmeterol/Fluticasone [Advair 500Mcg/50Mcg -] 1 inh IH BID 12/19/16 Tiotropium Garnett [Spiriva] 18 mcg IH DAILY 12/19/16 Apixaban [Eliquis -] 2.5 mg PO BID tablet 12/27/16 Ipratropium 0.02% Nebulizer [Atrovent 0.02% Nebulizer -] 1 amp NEB QIDR amp Prednisone [Deltasone -] 5 mg PO BID #111 tablet 12/27/16 This patient is new to me today: No Emergency Visit: No Critical Care patient: No - Discharge Referral Referred to [facility] Med [facility].: No
[2016-12-27 11:59] VITALS: PULSE 79
[2016-12-27] MEDS ORDERED: POTASSIUM CHLORIDE TABS 20 MEQ TABLET.ER (FP) PO ONE (12:00)
[2016-12-27 12:21] VITALS: BP 135/53; TEMP 97.8
--- NOTE | 2016-12-27 12:30 | PN ---
Teaching Attending Note Name of Resident: Cindy Jeter ATTENDING PHYSICIAN STATEMENT I saw and evaluated the patient. I reviewed the resident's note and discussed the case with the resident. I agree with the resident's findings and plan as documented. SUBJECTIVE: The patient feels anxious. OBJECTIVE: Vital Signs Period Temp Pulse Resp BP Sys/Paige Pulse Ox Last 24 Hr 96.8 F-98.7 F 72-83 18-23 116-135/50-54 94-99 GENERAL: The patient is awake, alert, and fully oriented, in no acute distress. LUNGS: Breath sounds decreased bilaterally. HEART: Regular rate and rhythm, S1, S2 without murmur, rub or gallop. ABDOMEN: Soft, nontender, nondistended, normoactive bowel sounds, no guarding, no rebound, no hepatosplenomegaly, no masses. EXTREMITIES: 2+ pulses, warm, well-perfused, no edema. ASSESSMENT AND PLAN: This is a 76-year-old woman with with a history of chronic hypoxic respiratory failure, COPD, chronic diastolic heart failure, HTN who presented from [facility] with worsening shortness of breath. 1. Acute on chronic hypoxic respiratory failure - Continue oxygen to maintain saturation >90% 2. Acute on chronic diastolic heart failure - Improved - Continue Lasix, Cardizem 3. Acute exacerbation of COPD - Continue Prednisone taper, Symbicort, Mucinex, Albuterol/Atrovent nebs 4. Hyponatremia, hypokalemia secondary to diuresis - Sodium stable at 130 - Potassium improved 5. Possible esophageal candidiasis - Continue Diflucan 6. Paroxysmal atrial fibrillation - Continue Cardizem, Eliquis 7. Hypertension - Continue Cardizem, Lasix 8. GERD - Continue Zantac 9. Depression and anxiety - Continue Xanax as needed 10. Severe malnutrition with BMI 13.4 - Continue Ensure 11. Disposition - Discharge to [place] today
== END 2016-12-27 12:35 | disposition hospice, inpatient (51) | DRG 291 ==
LOC: JER 09:47 → JERBED 14:25 → J8W 21:55
PROVIDERS: ADMIT Internal Medicine; ATTEND Internal Medicine
DX: I11.0 Hypertensive heart disease with heart failure (principal); J96.20 Acute and chronic respiratory failure, unspecified whether with hypoxia or hypercapnia; E43 Unspecified severe protein-calorie malnutrition; J44.0 Chronic obstructive pulmonary disease with (acute) lower respiratory infection; E87.1 Hypo-osmolality and hyponatremia; B37.81 Candidal esophagitis; Z68.1 Body mass index [BMI] 19.9 or less, adult; I50.31 Acute diastolic (congestive) heart failure; J20.9 Acute bronchitis, unspecified; I48.0 Paroxysmal atrial fibrillation; E87.6 Hypokalemia; K21.9 Gastro-esophageal reflux disease without esophagitis; I48.91 Unspecified atrial fibrillation; F41.8 Other specified anxiety disorders; Z99.81 Dependence on supplemental oxygen
CPT/HCPCS: 36415; 71010-TC; 80048; 80053; 81003; 82550; 82570; 83735; 83880; 84100; 84484; 84540; 84550; 85025; 85610; 87086; 93005; 93010; 94010; 94640; 97116-GP; 97161-GP; 99285-25